=== PATIENT | male | born 1935 | race Caucasian/White ===

== ENCOUNTER 2016-04-19 16:47 | Inpatient (IN) | payer MEDICARE, BC ==
[~2016-04-19] VITALS: Ht 172.7 cm; Wt 80.4 kg
[2016-04-19] VITALS (7 sets, daily range): BP systolic 108–142; BP diastolic 64–95; PULSE 72–146; RESP 16–20; TEMP 97.6; O2SAT 97–100
[2016-04-19] MEDS ORDERED: ASPI81TA81 (16:59)
[2016-04-19] MEDS ORDERED: LEVO.125 PO (16:59)
[2016-04-19] MEDS ORDERED: BENI5TAB4 PO (16:59)
[2016-04-19] MEDS ORDERED: XARE10TA PO (16:59)
[2016-04-19] MEDS ORDERED: METF500T PO (16:59)
[2016-04-19] MEDS ORDERED: SODIUM CHLORIDE 0.9% FLUSH 5 ML FLUSH IVF PRN (17:15)
[2016-04-19] MEDS ORDERED: DILTIAZEM HCL 25 MG/5 ML VIAL IV ONE (17:15)
[2016-04-19] MEDS ORDERED: SODIUM CHLORID 0.9% 500 ML INJ 500 ML IV ONE (17:15)
[2016-04-19] MEDS ORDERED: ASPIRIN 81 MG CHEW TAB PO ONE (17:15)
--- NOTE | 2016-04-19 17:28 | PD ---
HPI Chief Complaint: Cardiac Complaint Time Seen by Provider: 17:07 Travel History International Travel<30 days: No Contact w/Intl Traveler<30days: No Traveled to known affect area: No History of Present Illness HPI Patient is a 80-year-old male with history of hypertension, hyperlipidemia, diabetes, hypothyroidism, presents to emergency room with complaints of chest pain and shortness of breath. Patient reports that for the past 10 days, he has had increased gas and has been "belching." Patient reports that he has uncontrollable belching and reports that this has been causing him to be short of breath. Patient did follow up with his primary care doctor yesterday and EKG was obtained, patient reports that he had new onset atrial fibrillation diagnosed yesterday by his primary care doctor, Dr. Parks. Patient was subsequently started on Xarelto yesterday for his afib. Reports that his heart rate was in the 130's in the office yesterday. Reports that he tried to make an appointment with Dr. Chao for workup of his atrial fibrillation - reports that he is out of the office at this time and cannot be seen until May 06. Patient reports that his shortness of breath is getting worse, reports that he is very short of breath on exertion. Reports that he called his primary care doctor prior to coming to the emergency room and was told to go to the emergency room for evaluation and for admission and for a home health nurse licensed practical to see him. PFSH Past Medical History Heart Rhythm Problems: Yes (A. FIB) Cardiovascular Problems: Yes (afib) Diabetes: Yes Patient Takes Glucophage: Yes Diminished Hearing: No Thyroid Disease: Yes Tetanus Vaccination: Unknown Past Surgical History Cholecystectomy: Yes Social History Alcohol Use: Yes (WINE OCC) Tobacco Use: No Substance Use: No Allergies-Medications (Allergen,Severity, Reaction): Coded Allergies: No Known Allergies (Verified , 04/19/16) Reported Meds & Prescriptions Reported Meds & Active Scripts Active Reported Aspir-81 (Aspirin) 81 Mg Tabdr Synthroid (Levothyroxine Sodium) 125 Mcg Tab 125 Mcg PO DAILY Benicar (Olmesartan) 5 Mg Tab 10 Mg PO DAILY Xarelto (Rivaroxaban) 10 Mg Tab 10 Mg PO DAILY Metformin (Metformin HCl) 500 Mg Tab 500 Mg PO BIDPC With meals Review of Systems General / Constitutional: No: Fever Eyes: No: Visual changes HENT: No: Headaches Cardiovascular: Positive: Chest Pain or Discomfort, Palpitations, Tachycardia Respiratory: Positive: Shortness of Breath, Orthopnea Gastrointestinal: No: Abdominal Pain Genitourinary: No: Dysuria Musculoskeletal: No: Pain Skin: No Rash Neurologic: No: Weakness Psychiatric: No: Depression Endocrine: No: Polydipsia Hematologic/Lymphatic: No: Easy Bruising Physical Exam Narrative GENERAL: mild distress SKIN: Warm and dry. HEAD: Atraumatic. Normocephalic. EYES: Pupils equal and round. No scleral icterus. No injection or drainage. ENT: No nasal bleeding or discharge. Mucous membranes pink and moist. NECK: Trachea midline. No JVD. CARDIOVASCULAR: , tachycardic, irregular rate and rhythm. No murmur appreciated. RESPIRATORY: No accessory muscle use. Clear to auscultation. Breath sounds equal bilaterally. GASTROINTESTINAL: Abdomen soft, non-tender, nondistended. Hepatic and splenic margins not palpable. MUSCULOSKELETAL: No obvious deformities. No clubbing. No cyanosis. +1 edema b/l , no calf tenderness NEUROLOGICAL: Awake and alert. No obvious cranial nerve deficits. Motor grossly within normal limits. Normal speech. PSYCHIATRIC: Appropriate mood and affect; insight and judgment normal. Data Data Last Documented VS Vital Signs Date Time Temp Pulse Resp B/P Pulse Ox O2 Delivery O2 Flow Rate FiO2 04/19/16 19:09 72 18 141/70 98 Nasal Cannula 2 04/19/16 16:53 97.6 Orders B-Type Natriuretic Peptide (04/19/16 17:15) Ckmb (Isoenzyme) Profile (04/19/16 17:15) Complete Blood Count With Diff (04/19/16 17:15) Comprehensive Metabolic Panel (04/19/16 17:15) Magnesium (Mg) (04/19/16 17:15) Prothrombin Time / Inr (Pt) (04/19/16 17:15) Act Partial Throm Time (Ptt) (04/19/16 17:15) Troponin I (04/19/16 17:15) Lipase (04/19/16 17:15) Chest, Single Ap (04/19/16 17:15) Ecg Monitoring (04/19/16 17:15) Iv Access Insert/Monitor (04/19/16 17:15) Oximetry (04/19/16 17:15) Aspirin Chew (Aspirin Chew) (04/19/16 17:15) Sodium Chloride 0.9% Flush (Ns Flush) (04/19/16 17:15) Sodium Chlorid 0.9% 500 Ml Inj (Ns 500 M (04/19/16 17:15) Ct Pulmonary Angiogram (04/19/16 17:15) Us Leg Venous Doppler Bilat (04/19/16 ) Diltiazem Inj (Cardizem Inj) (04/19/16 17:15) Pantoprazole Inj (Protonix Inj) (04/19/16 17:45) Diltiazem (Cardizem) (04/19/16 17:45) Electrocardiogram (04/19/16 17:01) Blood Culture (04/19/16 18:35) Ceftriaxone Inj (Rocephin Inj) (04/19/16 18:45) Azithromycin Inj (Zithromax Inj) (04/19/16 18:45) Iohexol 350 Inj (Omnipaque 350 Inj) (04/19/16 18:55) Heparin Infusion EUSEBIO.Q1H (04/19/16 18:57) Heparin-D5w Inj (Heparin-D5w Inj) (04/19/16 19:00) Act Partial Throm Time (Ptt) (04/19/16 18:57) Cbc No Diff, Includes Plts (04/19/16 18:57) Cbc No Diff, Includes Plts (04/22/16 06:00) Act Partial Throm Time (Ptt) (04/20/16 01:57) Occult Blood (Hemoccult) Stool (04/19/16 18:57) Admit Order (Ed Use Only) (04/19/16 19:23) Labs Laboratory Tests Test 04/19/16 17:30 White Blood Count 12.7 TH/MM3 Red Blood Count 4.21 MIL/MM3 Hemoglobin 12.7 GM/DL Hematocrit 37.4 % Mean Corpuscular Volume 88.9 FL Mean Corpuscular Hemoglobin 30.2 PG Mean Corpuscular Hemoglobin 34.0 % Concent Red Cell Distribution Width 12.0 % Platelet Count 260 TH/MM3 Mean Platelet Volume 9.4 FL Neutrophils (%) (Auto) 70.0 % Lymphocytes (%) (Auto) 21.7 % Monocytes (%) (Auto) 6.0 % Eosinophils (%) (Auto) 1.4 % Basophils (%) (Auto) 0.9 % Neutrophils # (Auto) 8.9 TH/MM3 Lymphocytes # (Auto) 2.7 TH/MM3 Monocytes # (Auto) 0.8 TH/MM3 Eosinophils # (Auto) 0.2 TH/MM3 Basophils # (Auto) 0.1 TH/MM3 CBC Comment DIFF FINAL Differential Comment Prothrombin Time 11.8 SEC Prothromb Time International 1.1 RATIO Ratio Activated Partial 27.7 SEC Thromboplast Time Sodium Level 138 MEQ/L Potassium Level 4.2 MEQ/L Chloride Level 104 MEQ/L Carbon Dioxide Level 23.5 MEQ/L Anion Gap 11 MEQ/L Blood Urea Nitrogen 22 MG/DL Creatinine 1.30 MG/DL Estimat Glomerular Filtration 53 ML/MIN Rate Random Glucose 229 MG/DL Calcium Level 9.0 MG/DL Magnesium Level 1.8 MG/DL Total Bilirubin 0.6 MG/DL Aspartate Amino Transf 28 U/L (AST/SGOT) Alanine Aminotransferase 50 U/L (ALT/SGPT) Alkaline Phosphatase 58 U/L Total Creatine Kinase 78 U/L Troponin I 0.02 NG/ML B-Type Natriuretic Peptide 180 PG/ML Total Protein 7.5 GM/DL Albumin 3.8 GM/DL Lipase 120 U/L [facility] Medical Decision Making Medical Screen Exam Complete: Yes Emergency Medical Condition: Yes Interpretation(s) EKG at 1701: A. fib with RVR at 133 bpm, qt/qtc: 330/457 Vital Signs Date Time Temp Pulse Resp B/P Pulse Ox O2 Delivery O2 Flow Rate FiO2 04/19/16 17:13 133 20 126/95 98 Nasal Cannula 2 04/19/16 17:11 97 Nasal Cannula 2 04/19/16 17:01 20 97 Room Air 04/19/16 16:53 97.6 146 20 142/90 97 Last Impressions Chest X-Ray 04/19/16 1715 Signed Impressions: Service Date/Time: Tuesday, April 19, 2016 17:37 - CONCLUSION: Patchy opacity at the right lung base of concern for early pneumonia. Mikhail Patel MD Lower Extremity Ultrasound 04/19/16 0000 Signed Impressions: Service Date/Time: Tuesday, April 19, 2016 17:47 - CONCLUSION: No DVT. Morgan Cloud MD Differential Diagnosis A. fib with RVR, PE, DVT, arrhythmia, CHF exacerbation, ACS, electrolyte abnormalities Narrative Course Patient is a 80-year-old male who presents to emergency room with complaints of shortness of breath and belching for the past 10 days. Patient was diagnosed with A. fib with RVR yesterday and was started on Xarelto. Patient reports that his symptoms have been progressing and he has been progressively short of breath. Patient reports that he has an appointment with a home health nurse licensed practical on May [address] Chao, Patient currently in A. fib with RVR, Cardizem ordered for patient. Patient was placed on a property assessment monitor upon arrival to emergency room. Labs as well as x-ray of chest obtained. Patient with sob - concern for possible PE although patient denies any recent immobilizations. CTA of chest as well as US ordered to evaluate for PE/DVT. Patient does have +1 edema to bilateral extremities US of LE's negative. pt rate controlled with cardizem 20mg iv, patient given cardizem 30mg po chest xray with pneumonia - blood cultures ordered, antibiotics ordered patient with ARLINE score of 3 - patient started on heparin gtt patient with new onset afib and multilobar pneumonia - will require admission 2030: still waiting for call back from [facility]- 3rd page made to service Diagnosis Primary Impression: Atrial fibrillation with rapid ventricular response Additional Impressions: Pneumonia Pleural effusion Admitting Information Admitting Physician Requests: Admit Rhonda Kee DO Apr 19, 2016 17:28
[2016-04-19 17:40] LABS: AUTOMATED NEUTROPHIL # 8.9 TH/MM3 (1.8-7.7); BASOPHIL # 0.1 TH/MM3 (0-0.2); BASOPHIL % 0.9 % (0.0-2.0); EOSINOPHIL # 0.2 TH/MM3 (0-0.4); EOSINOPHIL % 1.4 % (0.0-4.0); HEMATOCRIT 37.4 % (39.0-51.0); HEMO FLAGS DIFF FINAL; LYMPH % 21.7 % (9.0-44.0); LYMPHOCYTE # 2.7 TH/MM3 (1.0-4.8); MEAN CELL VOLUME 88.9 FL (80.0-100.0); MEAN CORPUSCULAR HEMOGLOBIN 30.2 PG (27.0-34.0); PLATELET COUNT 260 TH/MM3 (150-450); RED BLOOD COUNT 4.21 MIL/MM3 (4.50-5.90); WHITE BLOOD COUNT 12.7 TH/MM3 (4.0-11.0)
[2016-04-19] MEDS ORDERED: PANTOPRAZOLE SODIUM 40 MG VIAL IV PUSH ONE (17:45)
[2016-04-19] MEDS ORDERED: DILTIAZEM HCL 30 MG TAB PO ONE (17:45)
[2016-04-19] MEDS ORDERED: DILTIAZEM HCL 60 MG TAB PO ONE (17:45)
[2016-04-19 17:49] LABS: CHLORIDE 104 MEQ/L (98-107); POTASSIUM 4.2 MEQ/L (3.5-5.1); SODIUM (NA) 138 MEQ/L (136-145)
[2016-04-19 17:53] LABS: ANION GAP 11 MEQ/L (5-15); BICARBONATE 23.5 MEQ/L (21.0-32.0); BLOOD UREA NITROGEN 22 MG/DL (7-18); MAGNESIUM 1.8 MG/DL (1.5-2.5)
[2016-04-19 17:54] LABS: APTT (PATIENT) 27.7 SEC (24.3-30.1); INTERNATIONAL NORMALIZED RATIO 1.1 RATIO; PROTHROMBIN TIME - PATIENT 11.8 SEC (9.8-11.6)
[2016-04-19 17:55] LABS: ALT (GPT) 50 U/L (12-78)
--- NOTE | 2016-04-19 17:55 | RADHPO ---
EXAM DATE/TIME: 04/19/2016 17:37 [facility] COMPARISON: No previous studies available for comparison. INDICATIONS : Short of breath for 10 days. MEDICAL HISTORY : A-fib. Diabetes. SURGICAL HISTORY : Cholecystectomy. ENCOUNTER: Initial ACUITY: 1 week PAIN SCORE: 0/10 LOCATION: Bilateral chest FINDINGS: A single AP erect portable view of the chest was obtained and demonstrates patchy opacity in the righ t lung base. The heart size is at the upper limits of normal. There is a calcified left hilar lymph n ode. There is no definite effusion. The bony thorax is intact. There are multiple overlying electroca rdiogram leads. CONCLUSION: Patchy opacity at the right lung base of concern for early pneumonia. Mikhail Patel MD on April 19, 2016 at 17:53 Board Certified Radiologist. This report was verified electronically.
[2016-04-19 17:56] LABS: AST (GOT) 28 U/L (15-37); GLOMERULAR FILTRATION RATE 53 ML/MIN (>89)
[2016-04-19 17:57] LABS: TOTAL BILIRUBIN ADULT 0.6 MG/DL (0.2-1.0)
[2016-04-19 17:58] LABS: ALKALINE PHOSPHATASE 58 U/L (45-117)
[2016-04-19 18:03] LABS: CREATINE KINASE 78 U/L (39-308)
--- NOTE | 2016-04-19 18:16 | RADHPO ---
EXAM DATE/TIME: 04/19/2016 17:47 [facility] COMPARISON: No previous studies available for comparison. INDICATIONS : Bilateral leg swelling. Shortness of breath. MEDICAL HISTORY : Diabetes. Thyroid disease. Afib. Anticoagulant therapy, Eliquis. SURGICAL HISTORY : Carotid endarterectomy.Cholecystectomy. ENCOUNTER: Initial ACUITY: 1 week PAIN SCORE: 0/10 LOCATION: Bilateral leg. TECHNIQUE: Venous ultrasound of the left and right leg was performed from the inguinal ligament to the proximal calf. Real-time, color Doppler and spectral tracing, compression and augmentation techniques were us ed. FINDINGS: RIGHT LEG: There is normal compressibility of the deep venous system from the inguinal region to the proximal ca lf. No echogenic clot is seen in the lumen of the common femoral, femoral, popliteal, and posterior tibial veins. There is a normal response of the venous system to proximal and distal augmentation an d respiration. LEFT LEG: There is normal compressibility of the deep venous system from the inguinal region to the proximal ca lf. No echogenic clot is seen in the lumen of the common femoral, femoral, popliteal, and posterior tibial veins. There is a normal response of the venous system to proximal and distal augmentation an d respiration. CONCLUSION: No DVT. Morgan Cloud MD on April 19, 2016 at 18:12 Board Certified Radiologist. This report was verified electronically.
[2016-04-19] MEDS ORDERED: cefTRIAXone INJ 1,000 MG in SODIUM CHLORIDE 0.9% INJ 100 ML IV ONE (18:45)
[2016-04-19] MEDS ORDERED: AZITHROMYCIN INJ 500 MG in SODIUM CHLOR 0.9% 250 ML INJ 250 ML IV ONE (18:45)
[2016-04-19] MEDS ORDERED: IOHEXOL 350 MG/ML 10 ML VIAL (for RAD DIAG) IV ONE (18:55)
[2016-04-19] MEDS ORDERED: HEPARIN-D5W INJ 250 ML IV SCH (19:00)
--- NOTE | 2016-04-19 19:15 | RADHPO ---
EXAM DATE/TIME: 04/19/2016 18:43 [facility] COMPARISON: No previous studies available for comparison. INDICATIONS : Shortness of breath. Evaluate for pulmonary embolism. IV CONTRAST: 75 cc Omnipaque 350 (iohexol) IV RADIATION DOSE: 13.69 CTDIvol (mGy) MEDICAL HISTORY : Cardiovascular disease. Diabetes mellitus type 2. SURGICAL HISTORY : Cholecystectomy. ENCOUNTER: Initial ACUITY: 2 weeks PAIN SCALE: 0/10 LOCATION: Bilateral chest TECHNIQUE: Volumetric scanning of the chest was performed using a pulmonary embolism protocol MIP images were reconstructed. Using automated exposure control and adjustment of the mA and/or kV acco rding to patient size, radiation dose was kept as low as reasonably achievable to obtain optimal diag nostic quality images. FINDINGS: The pulmonary arterial structures are well demonstrated. Pulmonary embolus is not seen. There are mild bilateral pleural effusions being worse on the right than the left. There is some p atchy nodular density seen in the superior lateral posterior right upper lung. This cluster pattern is most suggestive of post inflammatory change. There is also some minimal nodular density seen in t he right middle lobe region. There is some scattered irregular density seen at the lung bases bilate rally likely representing some degree of consolidation or atelectasis. There is a mild pericardial e ffusion. Coronary artery calcifications are present. Significant adenopathy is not seen. Normal siz ed lymph nodes are seen. Calcified granulomas are seen in the liver and spleen. CONCLUSION: 1. No pulmonary embolus. 2. Bilateral mild pleural effusions being worse on the right. 3. Scattered nodular densities seen in the right upper lobe and right middle lobe. These are most li dedrick post inflammatory given their distribution. They can be conservatively followed. 4. Patchy areas of irregular density in the lung bases likely representing areas of atelectasis or co nsolidation. Morgan Cloud MD on April 19, 2016 at 19:02 Board Certified Radiologist. This report was verified electronically.
[2016-04-19 19:42] LABS: MEAN CORPUSCULAR HEMOGLOBIN 29.7 PG (27.0-34.0); MEAN CORPUSCULAR HGB CONC 32.6 % (32.0-36.0); PLATELET COUNT 221 TH/MM3 (150-450); RED BLOOD COUNT 4.07 MIL/MM3 (4.50-5.90); RED CELL DISTRIBUTION WIDTH 12.4 % (11.6-17.2); REVIEW FLAG FINAL; WHITE BLOOD COUNT 10.7 TH/MM3 (4.0-11.0)
[2016-04-19] MEDS ORDERED: NALOXONE HCL 0.4 MG/ML AMP IV PRN (20:15)
[2016-04-19] MEDS ORDERED: SODIUM CHLORIDE 0.9% FLUSH 5 ML FLUSH FLUSH PRN (20:15)
--- NOTE | 2016-04-19 20:38 | RADHPO ---
EXAM DATE/TIME: 04/19/2016 20:20 [facility] COMPARISON: No previous studies available for comparison. INDICATIONS : Abdominal bloating for several days per patient. MEDICAL HISTORY : Cardiovascular disease. Diabetes mellitus type 2. SURGICAL HISTORY : Cholecystectomy. ENCOUNTER: Initial ACUITY: 4 - 6 days PAIN SCORE: 2/10 LOCATION: Abdomen, upper quadrant. FINDINGS: Significantly dilated bowel is not seen. Clips are seen in the right upper quadrant presumably from p rior cholecystectomy. Contrast is identified within the urinary bladder. The patient had a CT pulmon naheed angiogram performed earlier today. There is some degenerative change in the lumbar spine. CONCLUSION: No acute abnormality is seen. Morgan Cloud MD on April 19, 2016 at 20:30 Board Certified Radiologist. This report was verified electronically.
[2016-04-19] MEDS: SODIUM CHLORIDE 0.9% FLUSH 5 ML FLUSH FLUSH SCH (21:00)
[2016-04-20] VITALS (94 sets, daily range): BP systolic 64–160; BP diastolic 42–101; PULSE 60–148; RESP 6–36; TEMP 97.5–98.5; O2SAT 81–100
[2016-04-20] MEDS ORDERED: TEMAZEPAM 7.5 MG CAP PO ONE (00:30)
[2016-04-20 01:11] LABS: BLOOD, URINE NEG (NEG); GLUCOSE,URINE NEG (NEG); KETONE, URINE NEG (NEG); NITRITE,URINE NEG (NEG); PH, URINE 5.5 (5.0-8.5)
[2016-04-20 01:22] LABS: URINE COLOR YELLOW (YELLW/STRAW)
[2016-04-20 01:25] LABS: MUCUS URINE OCC /lpf (OCC); SQUAMOUS EPITHELIAL CELL URINE 0-5 /hpf (0-5)
[2016-04-20 01:26] LABS: COMMENT (UR) CULT NOT INDICATED; CULTURE IF INDICATED CULT NOT INDICATED; HYALINE CAST, URINE 0-2 /lpf (RARE)
[2016-04-20 02:39] LABS: APTT (PATIENT) 44.1 SEC (24.3-30.1)
[2016-04-20] MEDS ORDERED: DILTIAZEM HCL 25 MG/5 ML VIAL IV ONE (03:00)
[2016-04-20] MEDS ORDERED: methylPREDNISolone SOD SUCC 125 MG/2 ML VIAL IV PUSH ONE (03:45)
[2016-04-20] MEDS ORDERED: FUROSEMIDE 40 MG/4 ML VIAL IV PUSH ONE (03:45)
[2016-04-20] MEDS: RESP: ALBUTEROL 2.5 MG/IPRATROPIUM 0.5 MG NEB (PRN) NEB ×2 (03:46→07:25)
[2016-04-20] MEDS ORDERED: NITROGLYCERIN 0.4 MG SL 25 TABS/BTL SL ONE (04:09)
[2016-04-20] MEDS ORDERED: ETOMIDATE 20 MG/10 ML VIAL ONE (04:11)
[2016-04-20] MEDS ORDERED: PROPOFOL 500 MG/50 ML INJ 50 ML ONE (04:18)
--- NOTE | 2016-04-20 04:26 | RADHPO ---
EXAM DATE/TIME: 04/20/2016 04:04 [facility] COMPARISON: CHEST SINGLE AP, April 19, 2016, 17:37. INDICATIONS : Short of breath. MEDICAL HISTORY : A-fib. Diabetes. SURGICAL HISTORY : Cholecystectomy. ENCOUNTER: Subsequent ACUITY: 1 week PAIN SCORE: 0/10 LOCATION: Bilateral chest FINDINGS: The cardiac silhouette is enlarged in transverse diameter. There are findings of congestive heart jay lure with interstitial and alveolar opacity bilaterally. Small bilateral pleural effusions are identi fied. The findings have worsened when compared with the prior examination. CONCLUSION: 1. Cardiomegaly and findings of congestive heart failure. The findings have worsened when compared wi th the prior examination. Ramez Grubbs MD on April 20, 2016 at 4:24 Board Certified Radiologist. This report was verified electronically.
[2016-04-20] MEDS ORDERED: PROPOFOL 1000 MG/100 ML IV SCH (04:45)
--- NOTE | 2016-04-20 05:04 | RADHPO ---
EXAM DATE/TIME: 04/20/2016 04:40 [facility] COMPARISON: CHEST SINGLE AP, April 20, 2016, 4:04. INDICATIONS : Post intubation. MEDICAL HISTORY : A-fib. Diabetes. SURGICAL HISTORY : Cholecystectomy. ENCOUNTER: Initial ACUITY: 1 day PAIN SCORE: Non-responsive. LOCATION: Bilateral chest FINDINGS: The cardiac silhouette is enlarged in transverse diameter. Endotracheal tube is in good position abov e the donald. There are findings of congestive heart failure with interstitial and alveolar opacity b ilaterally. The findings have worsened when compared with the prior examination. CONCLUSION: 1. Cardiomegaly and findings of congestive heart failure. The findings have worsened when compared wi th the prior examination. 2. Satisfactory position of endotracheal tube as above. Ramez Grubbs MD on April 20, 2016 at 5:02 Board Certified Radiologist. This report was verified electronically.
[2016-04-20 05:33] LABS: BLOOD GAS BASE EXCESS -6.1 mmol/L (-2-2); BLOOD GAS CARBOXYHEMOGLOBIN 0.8 % (0-4); BLOOD GAS HCO3 20 mmol/L (22-26); BLOOD GAS O2 HGB SATURATION 97 % (90-100); BLOOD GAS OXYGEN CONTENT 17.2 Vol % (12.0-20.0); BLOOD GAS PCO2 44 mmHg (38-42); BLOOD GAS PO2 195 mmHg (61-120); BLOOD GAS TOTAL HGB 12.3 G/DL (12.0-16.0)
[2016-04-20 05:34] LABS: CRITICAL VALUE YES; OXYGEN DEVICE VENTILATOR
[2016-04-20 05:35] LABS: DRAW SITE RT RADIAL; FIO2 100 %; NUMBER OF ARTERIAL PUNCTURES 1; STAT NO; ULNAR PULSE Y
[2016-04-20 05:36] LABS: VENT SETTINGS PRVC/AC
[2016-04-20 06:09] LABS: AUTOMATED NEUTROPHIL # 19.1 TH/MM3 (1.8-7.7); BASOPHIL % 0.2 % (0.0-2.0); EOSINOPHIL # 0.2 TH/MM3 (0-0.4); EOSINOPHIL % 0.7 % (0.0-4.0); HEMATOCRIT 37.6 % (39.0-51.0); LYMPH % 11.6 % (9.0-44.0); LYMPHOCYTE # 2.7 TH/MM3 (1.0-4.8); MEAN CELL VOLUME 90.9 FL (80.0-100.0); MEAN CORPUSCULAR HEMOGLOBIN 30.6 PG (27.0-34.0); MEAN CORPUSCULAR HGB CONC 33.7 % (32.0-36.0); MONO % 4.3 % (0.0-8.0); NEUT % 83.2 % (16.0-70.0); PLATELET COUNT 238 TH/MM3 (150-450); RED BLOOD COUNT 4.14 MIL/MM3 (4.50-5.90); RED CELL DISTRIBUTION WIDTH 12.7 % (11.6-17.2)
[2016-04-20 06:18] LABS: HEMO FLAGS AUTO DIFF
[2016-04-20 06:35] LABS: POTASSIUM 3.9 MEQ/L (3.5-5.1)
[2016-04-20 06:40] LABS: BICARBONATE 21.9 MEQ/L (21.0-32.0)
[2016-04-20 07:15] LABS: SCAN/DIFF AUTO DIFF CONFIRMED
[2016-04-20] MEDS ORDERED: CHLORHEXIDINE GLUCONATE 2 % 1 PACK (2 CLOTHS) TOP PRN (07:15)
[2016-04-20] MEDS ORDERED: fentaNYL DRIP 250 ML IV SCH (07:15)
[2016-04-20] MEDS ORDERED: INSULIN NovoLIN REGULAR SUPPLEMENTAL SCALE SQ SCH (07:15)
[2016-04-20] MEDS ORDERED: MISCELLANEOUS NURSING INFORMATION XX SCH (07:15)
[2016-04-20] MEDS ORDERED: GLUCAGON 1 MG/ML VIAL OTHER PRN (07:15)
[2016-04-20] MEDS ORDERED: DEXTROSE 50% IN WATER 50 ML VIAL(D50) IV PUSH PRN (07:15)
[2016-04-20] MEDS ORDERED: VANCOMYCIN INJ 1,000 MG in SODIUM CHLOR 0.9% 250 ML INJ 250 ML IV ONE (08:00)
[2016-04-20] MEDS ORDERED: ASPIRIN EC 81 MG TABEC PO SCH (09:00)
[2016-04-20] MEDS ORDERED: LEVOFLOXACIN 750 MG PREMIX INJ 150 ML IV SCH (09:00)
[2016-04-20] MEDS ORDERED: PIPERACIL-TAZO 4.5 GM PREMIX 100 ML IV SCH (09:00)
[2016-04-20 09:06] LABS: APTT (PATIENT) 50.7 SEC (24.3-30.1)
[2016-04-20] MEDS: PANTOPRAZOLE SODIUM 40 MG VIAL IV SCH (09:35)
[2016-04-20] MEDS: SODIUM CHLORIDE 0.9% FLUSH 5 ML FLUSH FLUSH SCH ×2 (09:35→20:25)
--- NOTE | 2016-04-20 09:56 | EC ---
Study Study Date:04/20/2016 STUDY CONCLUSIONS SUMMARY - Procedure narrative: Transthoracic echocardiography. Image quality was fair. Scanning was performed from the parasternal, apical, and subcostal acoustic windows. - Left ventricle: The cavity size was moderately dilated. Wall thickness was normal. Systolic function was severely reduced. The estimated ejection fraction was 20%. Wall motion assessment is suboptimal. The basal portions of the left ventricle appear to be mildly hypokinetic. All other segments are akinetic. - Mitral valve: Mild annular calcification. Mild leaflet tip calcification. Mild regurgitation. - Left atrium: The atrium was mildly to moderately dilated. - Right atrium: The atrium was mildly dilated. - Tricuspid valve: Mild regurgitation. - Pericardium, extracardiac: There was a small circumferential pericardial effusion with no evidence for tamponade. Left pleural effusion is also evident. If LV function is below 40, please consider prescribing an ACEI or ARB or document rationale for non-use. PROCEDURE DATA STUDY STATUS: Elective. Procedure: Transthoracic echocardiography. Image quality was fair. Scanning was performed from the parasternal, apical, and subcostal acoustic windows. Study completion: The patient tolerated the procedure well. Transthoracic echocardiography. M-mode, complete 2D, complete spectral Doppler, and color Doppler. Height: Height: 68in. Weight: Weight: 184.6lb. Body mass index: BMI: 28.1kg/m^2. Body surface area: BSA: 1.98m^2. Patient status: Inpatient. CARDIAC ANATOMY LEFT VENTRICLE: The cavity size was moderately dilated. Wall thickness was normal. Systolic function was severely reduced. The estimated ejection fraction was 20%. Wall motion assessment is suboptimal. The basal portions of the left ventricle appear to be mildly hypokinetic. All other segments are akinetic. AORTIC VALVE: Trileaflet; normal thickness leaflets. Doppler: Transvalvular velocity was within the normal range. There was no stenosis. No regurgitation. Valve area: 3.01cm^2 (Vmax). Indexed valve area: 1.52cm^2/m^2 (Vmax). AORTA: Aortic root: The aortic root was normal in size. MITRAL VALVE: Mild annular calcification. Mild leaflet tip calcification. Doppler: Transvalvular velocity was within the normal range. There was no evidence for stenosis. Mild regurgitation. LEFT ATRIUM: The atrium was mildly to moderately dilated. RIGHT VENTRICLE: The cavity size was normal. Wall thickness was normal. PULMONIC VALVE: Doppler: Transvalvular velocity was within the normal range. There was no evidence for stenosis. No regurgitation. TRICUSPID VALVE: Structurally normal valve. Doppler: Transvalvular velocity was within the normal range. Mild regurgitation. PULMONARY ARTERY: The main pulmonary artery was normal-sized. Systolic pressure was within the normal range. RIGHT ATRIUM: The atrium was mildly dilated. PERICARDIUM: There was a small circumferential pericardial effusion with no evidence for tamponade. Left pleural effusion is also evident. SYSTEMIC VEINS: Inferior vena cava: The vessel was normal in size. Patient weight: 184.6lb _Ejection fraction:_ 65-75% _Fractional shortening:_ 32% up to 5Kg 5-11.5Kg 11.6-22.9Kg 23-45Kg 45-57Kg Aortic Root 7-13 <17 13-22 17-27 17-27 LA diam 6-13 <23 24-38 33-47 37-40 RVID 10-17 7-15 7-15 7-18 8-17 LVIDd 12-22 <32 24-38 33-47 37-40 LVPW 2-4 3-6 5-7 6-8 7-8 IVS 2-4 3-6 5-7 6-8 7-8 BASIC MEASUREMENTS ADULT NORMAL Left ventricle LV internal dimension, ED, chordal *55.6 mm 43-52 level, PLAX LV internal dimension, ES, chordal *49.7 mm 23-38 level, PLAX Fractional shortening, chordal level, *11 % >29 PLAX LV posterior wall thickness, ED 8.16 mm IVS/LVPW ratio, ED 1.06 <1.3 Ventricular septum Septal thickness, ED 8.68 mm Aortic valve Leaflet separation 17 mm 15-26 BASIC MEASUREMENTS ADULT NORMAL Aortic valve Leaflet separation 17 mm 15-26 Aorta Root diameter, ED 22 mm 20-37 Left atrium Anterior-posterior dimension, ES *44 mm 19-40 Anterior-posterior dimension index, ES *2.22 cm/m^2 <2.2 LA/aortic root ratio 2 DOPPLER MEASUREMENTS ADULT NORMAL Main pulmonary artery Pressure, S 26 mm Hg =30 Aortic valve Peak velocity, S 124 cm/s Valve area, Vmax 3.01 cm^2 Valve area index, Vmax 1.52 cm^2/m^2 Regurgitant velocity, ED 94.6 cm/s Regurgitant deceleration 554 cm/s^2 Regurgitant pressure half-time 500 ms Regurgitant gradient, ED 4 mm Hg Mitral valve Maximal regurgitant velocity 251 cm/s Tricuspid valve Regurgitant peak velocity 210 cm/s Peak RV-RA gradient, S 18 mm Hg Maximal regurgitant velocity 210 cm/s Systemic veins Estimated CVP 10 mm Hg Right ventricle RV pressure, S 28 mm Hg <30 Pulmonic valve Peak velocity, S 67.9 cm/s LEGEND: Mean values are shown as u=mean value. Asterisk (*) daly values outside specified normal range. Amended Dion Alonso. [id number]
[2016-04-20 10:16] LABS: BLOOD GAS BASE EXCESS -3.8 mmol/L (-2-2); BLOOD GAS CARBOXYHEMOGLOBIN 1.3 % (0-4); BLOOD GAS HCO3 20 mmol/L (22-26); BLOOD GAS O2 HGB SATURATION 96 % (90-100); BLOOD GAS OXYGEN CONTENT 15.7 Vol % (12.0-20.0); BLOOD GAS PCO2 28 mmHg (38-42); BLOOD GAS PO2 96 mmHg (61-120); BLOOD GAS TOTAL HGB 11.5 G/DL (12.0-16.0); CRITICAL VALUE NO; OXYGEN DEVICE VENTILATOR
[2016-04-20] MEDS: FUROSEMIDE 40 MG/4 ML VIAL IV PUSH SCH ×2 (10:16→17:24)
[2016-04-20 10:17] LABS: DRAW SITE LT RADIAL; FIO2 50 %; NUMBER OF ARTERIAL PUNCTURES 1; STAT NO; ULNAR PULSE PRESENT; VENT SETTINGS PRVC/AC/14/600/1./5P
--- NOTE | 2016-04-20 10:22 | MH ---
cc: MEGGAN STEVENSON DATE OF ADMISSION: 04/19/2016 DATE OF 1935 HISTORY OF PRESENT ILLNESS The patient is a 80-year-old male with past medical history of hypertension, hyperlipidemia, diabetes mellitus, hypothyroidism, atrial fibrillation. The patient presented to [facility] ED with complaints of chest pain associated with shortness of breath. The patient followed up with his primary care physician yesterday and EKG was obtained which showed new-onset atrial fibrillation and the patient was subsequently started on Xarelto for atrial fibrillation. The patient was advised to go to the ED for evaluation of his shortness of breath and to be seen by production underwriter. In the ER EKG was obtained which showed atrial fibrillation with RVR at a rate of 133 beats per minute. His laboratory data showed worsening leukocytosis with a WBC of 23.0 this morning and creatinine of 1.40 from 1.30 yesterday. Due to worsening respiratory distress the patient was subsequently intubated by the ED physician and placed on full mechanical ventilation. ABG post-intubation showed a pH of 7.27, CO2 44, pAO2 195, bicarb of 20 and saturation of 97% on PRVC/assist control mode with rate of 12, tidal volume 600, PEEP of 5, FIO2 70% and __1.0. He had CT angiogram last night which showed no evidence of pulmonary embolism, however, it showed bilateral mild pleural effusions and scattered nodular densities in the right upper lobe and right middle lobe, in addition to patchy areas of irregular density in the lung bases likely representing areas of atelectasis versus consolidation. Chest x-ray from this morning showed cardiomegaly and findings of congestive heart failure. The patient also had Doppler ultrasound lower extremities which showed no evidence of DVT. In the ER the patient was given ceftriaxone, azithromycin, aspirin, Lasix and Solu-Medrol 125 mg IV push. In addition the patient received Cardizem IV push for atrial fibrillation with RVR. When seen the patient is intubated on full mechanical ventilation and sedated with Diprivan. In addition the patient was started on heparin drip in the ED. PAST MEDICAL HISTORY Significant for: 1. Hypertension. 2. Hyperlipidemia. 3. Diabetes mellitus. 4. Hypothyroidism. 5. New-onset atrial fibrillation started on Xarelto by primary care physician. PAST SURGICAL HISTORY Previous cholecystectomy. SOCIAL HISTORY Occasional drinker, nonsmoker. ALLERGIES NO KNOWN DRUG ALLERGIES reported. MEDICATION 1. Xarelto. 2. Synthroid. 3. Aspirin. 4. Metformin. 5. Benicar. FAMILY HISTORY Noncontributory. REVIEW OF SYSTEMS As per HPI. The rest of the review of systems limited as the patient is intubated. PHYSICAL EXAMINATION GENERAL: A 80-year-old male intubated for respiratory failure. VITAL SIGNS: Afebrile, pulse of 89, blood pressure 90/61, saturation 99%. Vent setting PRVC/assist control rate of 12, tidal volume 600, PEEP of 5, __ 1.0, FIO2 70%. HEENT: Atraumatic, normocephalic. Pupil equal, round and reactive to light and accommodation. Extraocular muscles intact. Conjunctivae pink. Nonicteric sclerae. Oral mucosa within normal. NECK: Supple. No JVD, adenopathy or thyromegaly. Trachea midline. Orally intubated. CARDIOVASCULAR: Irregularly irregular. Normal S1-S2. No murmurs, rubs or gallops noted. PULMONARY: Bilateral equal air entry with coarse breath sounds. ABDOMEN: Soft, nontender, no distension. Positive bowel sounds. EXTREMITIES: No cyanosis, clubbing or edema. NEURO: Intubated and sedated with Diprivan. LABORATORY DATA Sodium 139, potassium 3.9, chloride 104, CO2 21, BUN 22, creatinine 1.40 and glucose of 332. WBC 23, hemoglobin 12.7, hematocrit 37, platelet count 238. Urinalysis showed no evidence of any leukocyte esterase, nitrite. RADIOGRAPHIC STUDIES CT angiogram of the chest showed no evidence of PE, however, it showed scattered nodular densities in the right upper and right middle lobe in addition to patchy areas of irregular density in the lung bases. Chest x-ray from this morning showed cardiomegaly, ET tube above the donald and CHF pattern. Doppler ultrasound lower extremity showed no evidence of DVT.. Abdominal x-ray obtained which showed no acute abnormality seen. EKG Showed atrial fibrillation with RVR at a rate of 133 beats per minute. IMPRESSION 1. Acute hypoxemic respiratory failure requiring intubation. 2. CHF. 3. Pneumonia. 4. Leukocytosis. 5. Atrial fibrillation with RVR. 6. Acute kidney injury. 7. Hyperglycemia with underlying history of diabetes mellitus. 8. Hypertension. 9. Hypothyroidism. RECOMMENDATIONS 1. The patient is currently on Diprivan infusion for sedation, place on fentanyl infusion if needed and daily sedation vacation. Monitor neuro status closely. 2. Continue with vent support and maintain sats above 92%. 3. Increase respiratory rate to 14 and decrease FIO2 to 50%. Will repeat ABG. 4. Bronchodilators in the form of DuoNeb q. 6 and will initiate ICU vent bundle. Start spontaneous breathing trials as tolerated when appropriate. 5. Monitor heart rate and blood pressure closely and maintain MAP greater than 65 mmHg. The patient had a troponin of 0.3 or less x3. 6. Will obtain a 2-D echo to evaluate LV function and rule out regional wall motion abnormalities. 7. Consult cardiology service for new onset atrial fibrillation with RVR. 8. Continue with heparin drip for atrial fibrillation. 9. Monitor renal function, I&0's and electrolyte replacement as needed. Continue with diuretics. The patient was placed on Lasix 40 mg IV b.i.d. 10. Start tube feeds in the form of Glucerna 1.5 with goal rate of 45 mL an hour and Protonix 40 mg IV daily for GI prophylaxis. 11. Place on broad-spectrum antibiotics in the form of vancomycin, Zosyn and azithromycin. Monitor for signs of infections which include fever and WBC. Follow up on blood cultures. In addition will obtain a sputum culture with gram stain, strep pneumonia and Legionella urinary antigen. 12. Place on medium scale insulin with Accu-Chek q. 6-hour for glycemic control and will obtain a baseline TSH level given underlying history of hypothyroidism. 13. Monitor CBC and coags as the patient is on heparin drip. 14. GI prophylaxis with Protonix 40 mg daily and DVT prophylaxis with SCDs and heparin drip. In addition the patient is on heparin drip. 15. Critical care time 50 minutes excluding procedures. MD ABBE Mahoney/MARY JO /7:15 AM /9:52 AM
--- NOTE | 2016-04-20 11:02 | MB ---
cc: DARYL CHAO M.D., MARK DATE OF CONSULTATION 04/20/2016 REASON FOR CONSULTATION Thank you Dr. Kee and Dr. Graves for asking us to see this 80-year-old white gentleman who presents with congestive heart failure, respiratory failure who is on a ventilator at this time. The patient had atrial fibrillation with rapid ventricular response. He was due to be seen in my office in the next couple of weeks, but unfortunately he got worse and presented to the emergency room via Dr. Parks's office. PAST MEDICAL HISTORY Positive for: 1. Atrial fibrillation of recent onset 2. Diabetes 3. The patient has leukocytosis. 4. He has had a history of a cholecystectomy. SOCIAL HISTORY Occasional alcohol. No tobacco. ALLERGIES INCLUDE ASPIRIN, SYNTHROID, Include aspirin and Seth 4. Bilateral ALLERGIES None known MEDICATIONS Include: 1. Aspirin 2. Synthroid 3. Benicar 4. Xarelto 5. Metformin REVIEW OF SYSTEMS Denies seizure, headaches, vomiting, diarrhea, dysuria or hematuria, otherwise 12-point review of systems is negative. PHYSICAL EXAM Pulse is 130. Blood pressure 141/70. EYES: Showed no xanthelasma. MOUTH: No cyanosis or pallor. NECK: No JVD. The patient was intubated. HEART: Two heart sounds, no murmurs. CHEST: Decreased air entry and rales. ABDOMEN: Soft. No hepatosplenomegaly. EXTREMITIES: Legs reveal no evidence of edema. NEUROLOGICAL: Exam grossly intact. LABORATORY TESTS White count was 12.7, hemoglobin was also 12.7, platelets 260, BNP 180. Troponin-I 0.02. Chest x-ray shows cardiomegaly and congestive heart failure. White count has jumped to 23,000, creatinine 1.4, GFR 49.5, BMP 180, TSH 3.14. Troponin-I 0.[address] angio showed no pulmonary emboli, bilateral effusions, a nodular density in the right upper lobe and right middle lobe felt to be most likely post inflammatory and is questionable consolidation. Troponin is negative. ASSESSMENT/PLAN At this point, the patient appears to have congestive heart failure, but given the elevated white count and early CT findings that might be significant for pneumonia as well. This could be causative in the patient's histology of the atrial fibrillation. Electrocardiogram shows atrial fibrillation with a left bundle branch block. EKG of 2004 shows sinus rhythm with no QRS. ASSESSMENT/PLAN We will continue diuresis and treat for congestive heart failure and we will treat the patient for possible pneumonia with antibiotics. Control heart rate with Diltiazem. When the patient is discharged, we will consider possible outpatient nuclear stress testing. We will also review the echocardiogram which is to be done today. Thank you kindly for asking us to see this very pleasant gentleman. Please note, the patient on vancomycin and azithromycin. We will switch him from heparin to Xarelto if he is able to take it via nasogastric tube. Daryl Chao MD, FRCP,[facility]/[place] /8:41 AM /10:37 AM MTDTushar
[2016-04-20] MEDS: INSULIN NovoLIN REGULAR SUPPLEMENTAL SCALE SQ SCH ×3 (11:31→23:40)
[2016-04-20] MEDS: PIPERACIL-TAZO 4.5 GM PREMIX 100 ML IV SCH ×3 (11:32→23:51)
[2016-04-20] MEDS: ASPIRIN 81 MG CHEW TAB OG-TUBE SCH (11:32)
[2016-04-20] MEDS ORDERED: SODIUM CHLORID 0.9% 500 ML INJ 500 ML IV ONE (14:45)
[2016-04-20] MEDS: RESP: ALBUTEROL 2.5 MG/IPRATROPIUM 0.5 MG NEB (SCH) NEB ×2 (15:18→21:53)
[2016-04-20] MEDS: AZITHROMYCIN INJ 500 MG in SODIUM CHLOR 0.9% 250 ML INJ 250 ML IV SCH (20:24)
[2016-04-20] MEDS: RIVAROXABAN 15 MG TAB OG SCH (20:25)
[2016-04-20] MEDS: CHLORHEXIDINE 0.12% (ORAL KIT) 15 ML CUP MT SCH (20:25)
[2016-04-20] MEDS: VANCOMYCIN 1,000 MG/NS 250 ML IV SCH ×2 (21:32)
--- NOTE | 2016-04-20 22:49 | EKG ---
Date Performed: 04/20/2016 Time Performed: 05:18:48 PTAGE: 80 years EKG: Atrial fibrillation with rapid ventricular response with paroxysmal idioventricular rhythm or aberrant ventricular conduction Incomplete LBBB Possible septal infarct - age undetermined Inferio r/lateral ST-T changes may be due to myocardial ischemia Abnormal ECG PREVIOUS TRACING : 04/19/2016 17.01 DOCTOR: Jarret Palma Interpretating Date/Time 04/20/2016 22:46:07
--- NOTE | 2016-04-20 22:52 | EKG ---
Date Performed: 04/19/2016 Time Performed: 23:44:42 PTAGE: 80 years EKG: Atrial fibrillation with rapid ventricular response with paroxysmal idioventricular rhythm or aberrant ventricular conduction Left bundle branch block Septal ST changes are nonspecific Abnorma l ECG PREVIOUS TRACING : 04/19/2016 17.01 DOCTOR: Jarret Palma Interpretating Date/Time 04/20/2016 22:51:45
--- NOTE | 2016-04-20 23:02 | EKG ---
Date Performed: 04/19/2016 Time Performed: 17:01:44 PTAGE: 80 years EKG: Atrial fibrillation with rapid ventricular response Left bundle branch block Abnormal ECG PREVIOUS TRACING : 11/29/2004 10.43 DOCTOR: Jarret Palma Interpretating Date/Time 04/20/2016 22:58:06
[2016-04-21] VITALS (58 sets, daily range): BP systolic 87–125; BP diastolic 40–81; PULSE 68–122; RESP 7–58; TEMP 97.7–98.8; O2SAT 92–98
[2016-04-21] MEDS: RESP: ALBUTEROL 2.5 MG/IPRATROPIUM 0.5 MG NEB (SCH) NEB ×4 (03:34→21:00)
[2016-04-21] MEDS: CHLORHEXIDINE GLUCONATE 2 % 1 PACK (2 CLOTHS) TOP SCH (04:15)
[2016-04-21 05:27] LABS: AUTOMATED NEUTROPHIL # 14.4 TH/MM3 (1.8-7.7); BASOPHIL # 0.1 TH/MM3 (0-0.2); BASOPHIL % 0.4 % (0.0-2.0); HEMATOCRIT 34.4 % (39.0-51.0); LYMPH % 4.6 % (9.0-44.0); LYMPHOCYTE # 0.7 TH/MM3 (1.0-4.8); MEAN CELL VOLUME 89.4 FL (80.0-100.0); MEAN CORPUSCULAR HEMOGLOBIN 30.1 PG (27.0-34.0); MEAN CORPUSCULAR HGB CONC 33.7 % (32.0-36.0); MONO % 4.1 % (0.0-8.0); NEUT % 90.9 % (16.0-70.0); PLATELET COUNT 198 TH/MM3 (150-450); RED BLOOD COUNT 3.84 MIL/MM3 (4.50-5.90); RED CELL DISTRIBUTION WIDTH 12.2 % (11.6-17.2); WHITE BLOOD COUNT 15.8 TH/MM3 (4.0-11.0)
[2016-04-21] MEDS: PIPERACIL-TAZO 4.5 GM PREMIX 100 ML IV SCH ×3 (05:28→20:15)
[2016-04-21 05:29] LABS: HEMO FLAGS DIFF FINAL
[2016-04-21] MEDS: INSULIN NovoLIN REGULAR SUPPLEMENTAL SCALE SQ SCH ×3 (05:31→18:00)
[2016-04-21 05:43] LABS: CHLORIDE 104 MEQ/L (98-107); POTASSIUM 3.9 MEQ/L (3.5-5.1); SODIUM (NA) 139 MEQ/L (136-145)
[2016-04-21 05:58] LABS: ALKALINE PHOSPHATASE 47 U/L (45-117); ALT (GPT) 85 U/L (12-78); ANION GAP 13 MEQ/L (5-15); AST (GOT) 56 U/L (15-37); BICARBONATE 21.9 MEQ/L (21.0-32.0); BLOOD UREA NITROGEN 36 MG/DL (7-18); GLOMERULAR FILTRATION RATE 37 ML/MIN (>89); TOTAL BILIRUBIN ADULT 0.7 MG/DL (0.2-1.0)
--- NOTE | 2016-04-21 06:25 | RADHPO ---
EXAM DATE/TIME: 04/21/2016 05:55 [facility] COMPARISON: CHEST SINGLE AP, April 20, 2016, 4:40. INDICATIONS : Short of breath. MEDICAL HISTORY : A-fib. Diabetes. SURGICAL HISTORY : Cholecystectomy. ENCOUNTER: Subsequent ACUITY: 2 days PAIN SCORE: Non-responsive. LOCATION: Bilateral chest FINDINGS: The cardiac silhouette is enlarged in transverse diameter. Support lines and tubes are in satisfactor y position. There are findings of congestive heart failure with interstitial and alveolar opacity arndell aterally. Moderate size bilateral pleural effusions are identified. CONCLUSION: 1. Cardiomegaly and findings of congestive heart failure. Bilateral pleural effusions. 2. There has been no significant change when compared to the prior exam. Ramez Grubbs MD on April 21, 2016 at 6:23 Board Certified Radiologist. This report was verified electronically.
--- NOTE | 2016-04-21 06:43 | HHI.CCPN ---
Subjective Remarks/Hospital Course The patient is a 80-year-old male with past medical history of hypertension, hyperlipidemia, diabetes mellitus, hypothyroidism, atrial fibrillation. The patient presented to [place] ED with complaints of chest pain associated with shortness of breath. The patient followed up with his primary care physician yesterday and EKG was obtained which showed new-onset atrial fibrillation and the patient was subsequently started on Xarelto for atrial fibrillation. The patient was advised to go to the ED for evaluation of his shortness of breath and to be seen by senior sql server database developer. In the ER EKG was obtained which showed atrial fibrillation with RVR at a rate of 133 beats per minute. His laboratory data showed worsening leukocytosis with a WBC of 23.0 this morning and creatinine of 1.40 from 1.30 yesterday. Due to worsening respiratory distress the patient was subsequently intubated by the ED physician and placed on full mechanical ventilation. ABG post-intubation showed a pH of 7.27, CO2 44, pAO2 195, bicarb of 20 and saturation of 97% on PRVC/assist control mode with rate of 12, tidal volume 600, PEEP of 5, FIO2 70% and __1.0. He had CT angiogram last night which showed no evidence of pulmonary embolism, however, it showed bilateral mild pleural effusions and scattered nodular densities in the right upper lobe and right middle lobe, in addition to patchy areas of irregular density in the lung bases likely representing areas of atelectasis versus consolidation. Chest x-ray from this morning showed cardiomegaly and findings of congestive heart failure. The patient also had Doppler ultrasound lower extremities which showed no evidence of DVT. In the ER the patient was given ceftriaxone, azithromycin, aspirin, Lasix and Solu-Medrol 125 mg IV push. In addition the patient received Cardizem IV push for atrial fibrillation with RVR. When seen the patient is intubated on full mechanical ventilation and sedated with Diprivan. In addition the patient was started on heparin drip in the ED. SUBJ 04/21/16: Remains in Atrial fibrillation with RVR. CXR remains unchanged with CHF. UO 1.2 L in 24 hours, creat increased from 14. to 1.8. Patient wakes up easily and follows commands. We'll start weaning trials, the patient needs to be diuresed better and chest x-ray improved prior to extubation. WBC count is trending down Objective Vital Signs Date Time Temp Pulse Resp B/P Pulse Ox O2 Delivery O2 Flow Rate FiO2 04/21/16 04:27 96 40 04/21/16 04:00 98.8 100 13 91/40 04/20/16 03:45 Nasal Cannula 4.00 Intake and Output 04/20/16 04/20/16 04/21/16 08:00 16:00 00:00 Intake Total 60 ml 1048 ml 815 ml Output Total 625 ml 1100 ml 350 ml Balance -565 ml -52 ml 465 ml Result Diagram: 04/21/1612 04/21/16511 Other Results Microbiology Date/Time Procedure Status Source Growth 04/20/16 09:30 Legionella Antigen - Final Complete Urine Catheterized Urine PRESUMPTIVE NEGATIVE FOR LEGIONELLA P... 04/20/16 09:30 Streptococcus pneumoniae Antigen (M - Final Complete Urine Catheterized Urine PRESUMPTIVE NEGATIVE FOR STREPTOCOCCU... Laboratory Tests Test 04/20/16 10:02 Blood Gas Puncture Site LT RADIAL Blood Gas Patient Temperature 37.0 Blood Gas HCO3 20 mmol/L (22-26) Blood Gas Base Excess -3.8 mmol/L (-2-2) Blood Gas Oxygen Saturation 96 % (90-100) Arterial Blood pH 7.46 (7.380-7.420) Arterial Blood Partial 28 mmHg (38-42) Pressure CO2 Arterial Blood Partial 96 mmHg Pressure O2 (61-120) Arterial Blood Oxygen Content 15.7 Vol % (12.0-20.0) Arterial Blood 1.3 % (0-4) Carboxyhemoglobin Arterial Blood Methemoglobin 1.0 % (0-2) Blood Gas Hemoglobin 11.5 G/DL (12.0-16.0) Oxygen Delivery Device VENTILATOR Blood Gas Ventilator Setting [facility]//14/600/1./5P Blood Gas Inspired Oxygen 50 % Objective Remarks GENERAL: Intubated wide awake, but appears ill anxious HEENT: Atraumatic, normocephalic. Pupil equal, round and reactive. Extraocular muscles intact. Orally intubated NECK: Supple. Trachea midline. Orally intubated. CARDIOVASCULAR: Irregularly irregular, RVR. Normal S1-S2. No murmurs, rubs or gallops noted. PULMONARY: Bilateral equal air entry with coarse breath sounds. Diminished air entry at the bases ABDOMEN: Soft, nontender, no distension. Positive bowel sounds. \EXTREMITIES: No cyanosis, clubbing. NEURO: Intubated and sedated with fentanyl. Wakes up easily follows commands A/P Assessment and Plan IMPRESSION 1. Acute hypoxemic respiratory failure requiring intubation. 2. Congestive heart failure 3. Pneumonia. 4. Leukocytosis. 5. Atrial fibrillation with RVR. 6. Acute kidney injury. 7. Hyperglycemia with underlying history of diabetes mellitus. 8. Hypertension. 9. Hypothyroidism. RECOMMENDATIONS Neuro: -WNL is on hold continue fentanyl infusion -Daily sedation vacation. Monitor neuro status closely. Resp: -Continue with vent support and maintain sats above 92%. PRVC mode -Initiate spontaneous breathing trials -DuoNeb every 6 hours and when necessary, ventilator bundle -Broad-spectrum antibiotics with Zosyn, vancomycin and azithromycin CVS: -Monitor heart rate and blood pressure closely and maintain MAP greater than 65 mmHg. -The patient had a troponin of 0.3 or less x3. -2-D echo -LV cavity size was moderately dilated. Systolic function was severely reduced. EF 20%. Wall motion assessment suboptimal. The basal portions of the LV appear to be mildly hypokinetic. All other segments are akinetic. -Consulted cardiology service for new onset atrial fibrillation with RVR. Dr. Chao -Continue with Xarelto for atrial fibrillation. -Start Cardizem infusion for rate control : -Monitor renal function, I&0's and electrolyte replacement as needed. -Continue with diuretics IV Lasix q12. Additional Bumex 2 mg IV x1 GI: -Start tube feeds in the form of Glucerna 1.5 with goal rate of 45 mL an hour -Protonix 40 mg IV daily for GI prophylaxis. ID: -Place on broad-spectrum antibiotics in the form of vancomycin, Zosyn and azithromycin. -Monitor for signs of infections which include fever and WBC. -Follow up on blood cultures. ENDO: -Medium scale insulin with Accu-Chek q. 6-hour for glycemic contro -Add Levemir 15 units every 12 hours -TSH is normal HEME: -Monitor CBC and coags as the patient is on Xarelto. -GI prophylaxis with Protonix 40 mg daily and DVT prophylaxis with SCDs and Xarelto Critical care time 32 minutes excluding procedure Patrick Mora MD Apr 21, 2016 06:43
[2016-04-21] MEDS ORDERED: BUMETANIDE INJ 1 MG/4 ML VIAL IV PUSH ONE (06:45)
[2016-04-21] MEDS: DILTIAZEM INJ 100 MG in SODIUM CHLORIDE 0.9% INJ 100 ML IV SCH ×2 (07:59→21:41)
[2016-04-21] MEDS: CHLORHEXIDINE 0.12% (ORAL KIT) 15 ML CUP MT SCH ×2 (08:00→18:16)
[2016-04-21 08:58] LABS: BLOOD GAS BASE EXCESS -2.1 mmol/L (-2-2); BLOOD GAS HCO3 23 mmol/L (22-26); BLOOD GAS O2 HGB SATURATION 95 % (90-100); BLOOD GAS OXYGEN CONTENT 15.8 Vol % (12.0-20.0); BLOOD GAS PCO2 40 mmHg (38-42); BLOOD GAS PO2 94 mmHg (61-120); BLOOD GAS TOTAL HGB 11.7 G/DL (12.0-16.0)
[2016-04-21 08:59] LABS: CRITICAL VALUE NO; DRAW SITE RT RADIAL; FIO2 40 %; NUMBER OF ARTERIAL PUNCTURES 1; OXYGEN DEVICE VENTILATOR; STAT NO; ULNAR PULSE PRESENT; VENT SETTINGS 5 PEEP/5 PS
[2016-04-21] MEDS: SODIUM CHLORIDE 0.9% FLUSH 5 ML FLUSH FLUSH SCH ×2 (09:00→20:20)
[2016-04-21] MEDS: ASPIRIN 81 MG CHEW TAB OG-TUBE SCH (09:50)
[2016-04-21] MEDS: FUROSEMIDE 40 MG/4 ML VIAL IV PUSH SCH ×2 (09:50→18:16)
[2016-04-21] MEDS: PANTOPRAZOLE SODIUM 40 MG VIAL IV SCH (09:50)
[2016-04-21] MEDS: VANCOMYCIN 1,000 MG/NS 250 ML IV SCH ×4 (09:51→21:41)
[2016-04-21] MEDS: INSULIN DETEMIR 100 UNITS/ML VIAL SQ SCH ×2 (09:52→20:20)
[2016-04-21] MEDS: RIVAROXABAN 15 MG TAB OG SCH (20:16)
[2016-04-21] MEDS: AZITHROMYCIN INJ 500 MG in SODIUM CHLOR 0.9% 250 ML INJ 250 ML IV SCH (20:18)
[2016-04-22] VITALS (43 sets, daily range): BP systolic 100–142; BP diastolic 48–75; PULSE 60–106; RESP 12–36; TEMP 97.1–97.9; O2SAT 93–100
[2016-04-22] MEDS: INSULIN NovoLIN REGULAR SUPPLEMENTAL SCALE SQ SCH ×4 (00:26→17:22)
[2016-04-22] MEDS ORDERED: DILTIAZEM 125 MG/NS 100 ML IV SCH ×2 (04:00)
[2016-04-22] MEDS: CHLORHEXIDINE GLUCONATE 2 % 1 PACK (2 CLOTHS) TOP SCH (04:06)
[2016-04-22] MEDS: PIPERACIL-TAZO 4.5 GM PREMIX 100 ML IV SCH (04:07)
[2016-04-22] MEDS: RESP: ALBUTEROL 2.5 MG/IPRATROPIUM 0.5 MG NEB (SCH) NEB ×4 (04:16→21:59)
[2016-04-22 05:24] LABS: HEMATOCRIT 34.7 % (39.0-51.0); MEAN CELL VOLUME 89.2 FL (80.0-100.0); MEAN CORPUSCULAR HEMOGLOBIN 29.4 PG (27.0-34.0); PLATELET COUNT 219 TH/MM3 (150-450); RED BLOOD COUNT 3.89 MIL/MM3 (4.50-5.90); RED CELL DISTRIBUTION WIDTH 12.7 % (11.6-17.2); REVIEW FLAG FINAL; WHITE BLOOD COUNT 15.2 TH/MM3 (4.0-11.0)
[2016-04-22 05:32] LABS: CHLORIDE 102 MEQ/L (98-107); POTASSIUM 3.5 MEQ/L (3.5-5.1); SODIUM (NA) 141 MEQ/L (136-145)
[2016-04-22 05:36] LABS: ANION GAP 11 MEQ/L (5-15); BICARBONATE 27.7 MEQ/L (21.0-32.0)
--- NOTE | 2016-04-22 05:40 | RADHPO ---
EXAM DATE/TIME: 04/22/2016 05:07 [facility] COMPARISON: CHEST SINGLE AP, April 21, 2016, 5:55. INDICATIONS : Shortness of breath MEDICAL HISTORY : A-fib. Diabetes. SURGICAL HISTORY : None. ENCOUNTER: Subsequent ACUITY: 3 days PAIN SCORE: 0/10 LOCATION: Bilateral chest FINDINGS: The cardiac silhouette is enlarged in transverse diameter. There are findings of congestive heart jay lure with interstitial and alveolar opacity bilaterally. The findings are improved when compared with the prior exam. Moderate size bilateral pleural effusions are identified. Support lines and tubes jane ve been removed. CONCLUSION: 1. Cardiomegaly and findings of congestive heart failure. This is improving when compared with the pr ior study Ramez Grubbs MD on April 22, 2016 at 5:38 Board Certified Radiologist. This report was verified electronically.
[2016-04-22 05:44] LABS: ALKALINE PHOSPHATASE 46 U/L (45-117); ALT (GPT) 106 U/L (12-78); AST (GOT) 45 U/L (15-37); BLOOD UREA NITROGEN 34 MG/DL (7-18); GLOMERULAR FILTRATION RATE 34 ML/MIN (>89); TOTAL BILIRUBIN ADULT 0.8 MG/DL (0.2-1.0)
--- NOTE | 2016-04-22 06:40 | PD.TRANSFR ---
Transfer Summary Admission Date Apr 19, 2016 at 19:25 Transfer Date: Apr 22, 2016 Admitting Diagnosis new onset afib with RVR, multilobar pneumonia Diagnoses: (1) Acute hypoxemic respiratory failure Diagnosis: Principal (2) Sepsis Diagnosis: Principal (3) Atrial fibrillation with rapid ventricular response Diagnosis: Principal (4) Pneumonia Diagnosis: Principal (5) Pleural effusion Diagnosis: Principal Transfer Summary/Subjective The patient is a 80-year-old male with past medical history of hypertension, hyperlipidemia, diabetes mellitus, hypothyroidism, atrial fibrillation. The patient presented to [facility] with complaints of chest pain associated with shortness of breath. The patient followed up with his primary care physician yesterday and EKG was obtained which showed new-onset atrial fibrillation and the patient was subsequently started on Xarelto for atrial fibrillation. He came to ED for evaluation of his shortness of breath and to be seen by teacher adult education. In the ER EKG was obtained which showed atrial fibrillation with RVR at a rate of 133 beats per minute. His laboratory data showed worsening leukocytosis with a WBC of 23.0 this morning and creatinine of 1.40 from 1.30 yesterday. Due to worsening respiratory distress the patient was subsequently intubated by the ED physician and placed on full mechanical ventilation. ABG post-intubation showed a pH of 7.27, CO2 44, pAO2 195, bicarb of 20 and saturation of 97% on PRVC/assist control mode with rate of 12, tidal volume 600, PEEP of 5, FIO2 70%. He had CT angiogram last night which showed no evidence of pulmonary embolism, however, it showed bilateral mild pleural effusions and scattered nodular densities in the right upper lobe and right middle lobe, in addition to patchy areas of irregular density in the lung bases likely representing areas of atelectasis versus consolidation. Chest x-ray from this morning showed cardiomegaly and findings of congestive heart failure. The patient also had Doppler ultrasound lower extremities which showed no evidence of DVT. In the ER the patient was given ceftriaxone, azithromycin, aspirin, Lasix and Solu-Medrol 125 mg IV push. In addition the patient received Cardizem IV push for atrial fibrillation with RVR. When seen the patient is intubated on full mechanical ventilation and sedated with Diprivan. In addition the patient was started on heparin drip in the ED. SUBJ 04/21/16: Remains in Atrial fibrillation with RVR. CXR remains unchanged with CHF. UO 1.2 L in 24 hours, creat increased from 14. to 1.8. Patient wakes up easily and follows commands. We'll start weaning trials, the patient needs to be diuresed better and chest x-ray improved prior to extubation. WBC count is trending down 04/22/15: Patient was extubated yesterday 04/21/16 tolerating well. Urine output 3.2 L in 24 hours. Creatinine slightly increased 1.8-1.9. A. fib rate is controlled on Cardizem infusion was discontinued infusion and start by mouth. Blood sugar improved control. Objective Vital Signs Date Time Temp Pulse Resp B/P Pulse Ox O2 Delivery O2 Flow Rate FiO2 04/22/16 06:00 87 04/22/16 04:31 12 109/64 97 04/22/16 04:01 97.9 04/21/16 21:01 Nasal Cannula 3.00 04/21/16 08:00 40 Intake and Output 04/21/16 04/21/16 04/22/16 08:00 16:00 00:00 Intake Total 939 ml 1187 ml 607 ml Output Total 440 ml 1150 ml 1250 ml Balance 499 ml 37 ml -643 ml Result Diagram: 04/22/16 0510 04/22/16 0510 Other Results Microbiology Date/Time Procedure Status Source Growth 04/20/16 09:30 Legionella Antigen - Final Complete Urine Catheterized Urine PRESUMPTIVE NEGATIVE FOR LEGIONELLA P... 04/20/16 09:30 Streptococcus pneumoniae Antigen (M - Final Complete Urine Catheterized Urine PRESUMPTIVE NEGATIVE FOR STREPTOCOCCU... Laboratory Tests Test 04/21/16 08:50 Blood Gas Puncture Site RT RADIAL Blood Gas Patient Temperature 37.0 Blood Gas HCO3 23 mmol/L (22-26) Blood Gas Base Excess -2.1 mmol/L (-2-2) Blood Gas Oxygen Saturation 95 % (90-100) Arterial Blood pH 7.37 (7.380-7.420) Arterial Blood Partial 40 mmHg (38-42) Pressure CO2 Arterial Blood Partial 94 mmHg Pressure O2 (61-120) Arterial Blood Oxygen Content 15.8 Vol % (12.0-20.0) Arterial Blood 1.0 % (0-4) Carboxyhemoglobin Arterial Blood Methemoglobin 1.0 % (0-2) Blood Gas Hemoglobin 11.7 G/DL (12.0-16.0) Oxygen Delivery Device VENTILATOR Blood Gas Ventilator Setting 5 PEEP/5 PS Blood Gas Inspired Oxygen 40 % Objective Remarks GENERAL: Awake alert oriented HEENT: Atraumatic, normocephalic. Pupil equal, round and reactive. Extraocular muscles intact. NECK: Supple. Trachea midline. CARDIOVASCULAR: Irregularly irregular, heart rate in 70s. No murmurs, rubs or gallops noted. PULMONARY: Bilateral equal air entry with coarse breath sounds. Diminished air entry at the bases ABDOMEN: Soft, nontender, no distension. Positive bowel sounds. EXTREMITIES: No cyanosis, clubbing. NEURO: Alert awake follows commands no focal deficits Urinary Catheter: Yes Assessment to: Continue A/P Assessment and Plan IMPRESSION 1. Acute hypoxemic respiratory failure requiring intubation-resolved 2. Congestive heart failure 3. Pneumonia. 4. Sepsis. 5. Atrial fibrillation with RVR. 6. Acute kidney failure. 7. Hyperglycemia with underlying history of diabetes mellitus. 8. Hypertension. 9. Hypothyroidism. RECOMMENDATIONS Neuro: -Discontinue all continuous sedation. Otherwise minimize sedation -Monitor neuro status closely. Resp: -Extubated 04/21/16. Tolerating well -DuoNeb every 6 hours and when necessary -Broad-spectrum antibiotics with Zosyn, discontinue vancomycin and azithromycin CVS: -Monitor heart rate and blood pressure closely and maintain MAP greater than 65 mmHg. -The patient had a troponin of 0.3 or less x3. -2-D echo -LV cavity size was moderately dilated. Systolic function was severely reduced. EF 20%. Wall motion assessment suboptimal. The basal portions of the LV appear to be mildly hypokinetic. All other segments are akinetic. Cardiology Dr. ortiz -Continue with Xarelto for atrial fibrillation. -DC Cardizem infusion, start cardizem 30 mg QID for rate control : -Monitor renal function, I&0's and electrolyte replacement as needed. -Continue with diuretics IV Lasix q12. GI: -Start 1800 ADA, renal diet -Protonix 40 mg IV daily for GI prophylaxis-DC today ID: -Broad-spectrum antibiotics in the form of Zosyn. Discontinue vancomycin and azithromycin. -Monitor for signs of infections which include fever and WBC. -Follow up on blood cultures-all cultures negative to date ENDO: -Medium scale insulin with Accu-Chek q. 6-hour for glycemic control -Levemir 15 units every 12 hours -TSH is normal HEME: -Monitor CBC and coags as the patient is on Xarelto. -GI prophylaxis with Protonix 40 mg daily-DC today and DVT prophylaxis with SCDs and Xarelto Level 3 [facility] consulted to assume care in am 04/23/16 Patrick Mora MD Apr 22, 2016 06:40
[2016-04-22] MEDS: CHLORHEXIDINE 0.12% (ORAL KIT) 15 ML CUP MT SCH (08:00)
[2016-04-22] MEDS: PIPERACIL-TAZO 3.375 GM PREMIX 50 ML IV SCH ×2 (08:27→16:33)
[2016-04-22] MEDS: DILTIAZEM HCL 30 MG TAB PO SCH ×4 (08:27→21:02)
[2016-04-22] MEDS: ASPIRIN 81 MG CHEW TAB OG-TUBE SCH (08:27)
[2016-04-22] MEDS: FUROSEMIDE 40 MG/4 ML VIAL IV PUSH SCH ×2 (08:27→17:22)
[2016-04-22] MEDS: INSULIN DETEMIR 100 UNITS/ML VIAL SQ SCH ×2 (08:28→21:03)
[2016-04-22] MEDS: SODIUM CHLORIDE 0.9% FLUSH 5 ML FLUSH FLUSH SCH ×2 (08:29→21:03)
[2016-04-22 19:58] LABS: BICARBONATE 32.5 MEQ/L (21.0-32.0); MAGNESIUM 2.2 MG/DL (1.5-2.5)
[2016-04-22] MEDS: RIVAROXABAN 15 MG TAB OG SCH (21:02)
[2016-04-22] MEDS: POTASSIUM CHLORIDE 20 MEQ CONTROLLED RELEASE TAB PO SCH ×2 (21:02→22:10)
[2016-04-23] VITALS (9 sets, daily range): BP systolic 118–125; BP diastolic 69–78; PULSE 72–91; RESP 17–20; TEMP 97.1–98.2; O2SAT 95–99
[2016-04-23] MEDS: PIPERACIL-TAZO 3.375 GM PREMIX 50 ML IV SCH (00:21)
[2016-04-23] MEDS: RESP: ALBUTEROL 2.5 MG/IPRATROPIUM 0.5 MG NEB (SCH) NEB ×4 (03:36→20:56)
[2016-04-23] MEDS: CHLORHEXIDINE GLUCONATE 2 % 1 PACK (2 CLOTHS) TOP SCH (04:00)
[2016-04-23] MEDS: INSULIN NovoLIN REGULAR SUPPLEMENTAL SCALE SQ SCH ×5 (06:18→23:54)
[2016-04-23 07:23] LABS: AUTOMATED NEUTROPHIL # 8.8 TH/MM3 (1.8-7.7); BASOPHIL % 0.3 % (0.0-2.0); EOSINOPHIL # 0.5 TH/MM3 (0-0.4); EOSINOPHIL % 4.3 % (0.0-4.0); HEMATOCRIT 35.7 % (39.0-51.0); HEMO FLAGS DIFF FINAL; LYMPH % 14.5 % (9.0-44.0); LYMPHOCYTE # 1.7 TH/MM3 (1.0-4.8); MEAN CELL VOLUME 88.6 FL (80.0-100.0); MEAN CORPUSCULAR HEMOGLOBIN 30.2 PG (27.0-34.0); MEAN CORPUSCULAR HGB CONC 34.1 % (32.0-36.0); MONO % 7.5 % (0.0-8.0); NEUT % 73.4 % (16.0-70.0); PLATELET COUNT 224 TH/MM3 (150-450); RED BLOOD COUNT 4.04 MIL/MM3 (4.50-5.90); RED CELL DISTRIBUTION WIDTH 12.5 % (11.6-17.2); WHITE BLOOD COUNT 11.9 TH/MM3 (4.0-11.0)
[2016-04-23 07:31] LABS: CHLORIDE 102 MEQ/L (98-107); POTASSIUM 3.7 MEQ/L (3.5-5.1); SODIUM (NA) 142 MEQ/L (136-145)
[2016-04-23 07:37] LABS: ANION GAP 7 MEQ/L (5-15); BICARBONATE 32.8 MEQ/L (21.0-32.0); BLOOD UREA NITROGEN 25 MG/DL (7-18)
--- NOTE | 2016-04-23 07:37 | PD.CARD.PN ---
Subjective Subjective Remarks CTSP for "VT" Denies CP or SOB. Reviewed records and telemetry strips. Objective Medications Current Medications Medications (Trade) Dose Ordered Sig/Tamie Route PRN Reason Start Time Stop Time Status Last Admin Dose Admin IV Flush (NS Flush) 2 ml UNSCH PRN FLUSH FLUSH AFTER USING IV ACCESS 04/19/16 20:15 04/20/16 04:00 IV Flush (NS Flush) 2 ml BID FLUSH 04/19/16 21:00 04/22/16 21:03 Naloxone HCl (Narcan Inj) 0.4 mg UNSCH PRN IV SEE LABEL COMMENTS 04/19/16 20:15 Furosemide (Lasix Inj) 40 mg BID@18 IV PUSH 04/20/16 09:00 04/22/16 17:22 Dextrose (D50w (Vial) Inj) 25 ml UNSCH PRN IV PUSH HYPOGLYCEMIA-SEE COMMENTS 04/20/16 07:15 Glucagon (Glucagon Inj) 1 mg UNSCH PRN OTHER HYPOGLYCEMIA-SEE COMMENTS 04/20/16 07:15 Chlorhexidine Gluconate (Chlorhexidine 2% Cloth) 3 pack Taper DAILY@04 TOP 04/21/16 04:00 04/17/17 03:59 04/22/16 04:06 Rivaroxaban (Xarelto) 15 mg HS OG 04/20/16 21:00 04/22/16 21:02 Insulin Human Regular (NovoLIN R SUPPLEMENTAL SCALE) 1 Q6HR SQ 04/20/16 12:00 04/22/16 17:22 Aspirin (Aspirin Chew) 81 mg DAILY OG-TUBE 04/20/16 10:30 04/22/16 08:27 Insulin Detemir 15 units 15 units Q12HR SQ 04/21/16 09:00 04/22/16 21:03 Piperacillin Sod/ Tazobactam Sod (Zosyn 3.375 Gm Premix) 50 ml @ 100 mls/hr Q8H IV 04/22/16 08:00 04/23/16 00:21 Diltiazem HCl (Cardizem Cd) 120 mg DAILY PO 04/23/16 09:00 Vital Signs / I&O Vital Signs Date Time Temp Pulse Resp B/P Pulse Ox O2 Delivery O2 Flow Rate FiO2 04/23/16 04:00 97.1 86 18 121/72 97 04/23/16 00:00 97.3 72 18 121/69 99 04/22/16 21:59 96 Nasal Cannula 2.00 04/22/16 20:00 88 04/22/16 20:00 97.1 86 18 142/74 100 04/22/16 16:45 97.8 88 18 96 04/22/16 16:30 86 18 97 04/22/16 16:15 82 18 97 04/22/16 16:00 80 24 98 04/22/16 12:00 97.8 84 23 96 04/22/16 11:00 92 21 96 04/22/16 10:00 90 25 98 04/22/16 09:57 106 29 117/75 93 04/22/16 09:27 97 Nasal Cannula 2.00 04/22/16 09:00 97.7 76 21 98 04/22/16 08:31 80 22 122/65 97 04/22/16 08:01 90 32 120/48 96 04/22/16 08:00 90 36 96 04/22/16 07:31 72 15 111/58 99 I/O 04/22/16 04/22/16 04/22/16 04/23/16 04/23/16 04/23/16 07:00 15:00 23:00 07:00 15:00 23:00 Intake Total 983 ml 240 ml Output Total 650 ml 1450 ml 1350 ml 500 ml Balance 333 ml -1450 ml -1350 ml -260 ml Intake Oral 360 ml 240 ml IV Total 623 ml Output Urine Total 650 ml 1450 ml 1350 ml 500 ml # Bowel Movements 0 0 Physical Exam VSS, afebrile. Mild JVD @ 90 deg. Lungs: CTA Heart irreg, s1,s2 Ext: No edema Neuro: intact Laboratory Laboratory Tests Test 04/22/16 19:42 Sodium Level 140 MEQ/L Potassium Level 3.0 MEQ/L Chloride Level 99 MEQ/L Carbon Dioxide Level 32.5 MEQ/L Anion Gap 9 MEQ/L Blood Urea Nitrogen 29 MG/DL Creatinine 1.70 MG/DL Estimat Glomerular Filtration 39 ML/MIN Rate Random Glucose 159 MG/DL Calcium Level 8.5 MG/DL Magnesium Level 2.2 MG/DL Imaging Echo report reviewed. LVEF 20% Mild MR/TR Last 48 hours Impressions Chest X-Ray 04/22/16 0600 Signed Impressions: Service Date/Time: Friday, April 22, 2016 05:07 - CONCLUSION: 1. Cardiomegaly and findings of congestive heart failure. This is improving when compared with the prior study Ramez Grubbs MD Assessment and Plan Problem List: (1) Severe left ventricular systolic dysfunction (2) Acute systolic (congestive) heart failure (3) Cardiomyopathy (4) LBBB (left bundle branch block) (5) Atrial fibrillation Assessment and Plan Add Coreg and christopher inhibitor as tolerates. WCT appears to be afib with aberancy. salesperson floor coverings to PO diuretics. Discussed with patient and KENNETH Pagan). Bubba Sy MD Apr 23, 2016 07:37 Bubba Sy MD Apr 23, 2016 07:37
[2016-04-23 07:40] LABS: ALT (GPT) 96 U/L (12-78); AST (GOT) 34 U/L (15-37); GLOMERULAR FILTRATION RATE 53 ML/MIN (>89)
[2016-04-23 07:42] LABS: TOTAL BILIRUBIN ADULT 0.9 MG/DL (0.2-1.0)
[2016-04-23 07:43] LABS: ALKALINE PHOSPHATASE 57 U/L (45-117)
[2016-04-23] MEDS: ASPIRIN 81 MG CHEW TAB OG-TUBE SCH (07:57)
[2016-04-23] MEDS: SODIUM CHLORIDE 0.9% FLUSH 5 ML FLUSH FLUSH SCH ×2 (07:58→20:59)
[2016-04-23] MEDS: INSULIN DETEMIR 100 UNITS/ML VIAL SQ SCH (07:58)
[2016-04-23] MEDS: DILTIAZEM-CD 120 MG CAP ER PO SCH (08:08)
[2016-04-23] MEDS: POTASSIUM CHLORIDE 20 MEQ CONTROLLED RELEASE TAB PO SCH (08:08)
[2016-04-23] MEDS: RAMIPRIL 1.25 MG CAP PO SCH ×2 (08:08→20:59)
[2016-04-23] MEDS: CARVEDILOL 6.25 MG TAB PO SCH ×2 (08:08→20:59)
[2016-04-23] MEDS: LEVOFLOXACIN 750 MG TAB PO SCH (08:09)
[2016-04-23] MEDS: FUROSEMIDE 40 MG TAB PO SCH (08:09)
--- NOTE | 2016-04-23 08:09 | HHI.PR ---
Subjective Remarks This is a quite pleasant 80 year-old male who recently presented to hospital on 04/19/16 at the request of his primary medical doctor for evaluation of new onset atrial fibrillation. Patient was initially admitted to the medical service and deteriorated throughout the day with congestive heart failure and subsequently intubated for respiratory support. Patient remained on mechanical ventilation until he was extubated on 04/21/16. Patient had continued diuresis during his intubation and had significant urinary output of over 3 L in 24 hours. Patient had Cardizem IV discontinued 04/22/16. He was started on by mouth Cardizem with good rate control. Patient did have echocardiogram performed which did indicate ejection fraction 20% and mildly dilated left and right atrium. Patient no longer required critical care service and was requested for medical team to assume medical management at this time. The time evaluating the patient he is doing much better. He is no longer have any shortness of breath or dyspnea. Heart rate is controlled on by mouth medications. Discussed the case with site foreman Dr. Sy. Patient is very eager to go home, however we need to monitor the patient at least another couple days while medication adjustment can be performed for appropriate management of his atrial fibrillation, cardiomyopathy. Objective Vitals Vital Signs Date Time Temp Pulse Resp B/P Pulse Ox O2 Delivery O2 Flow Rate FiO2 04/23/16 04:00 97.1 86 18 121/72 97 04/23/16 00:00 97.3 72 18 121/69 99 04/22/16 21:59 96 Nasal Cannula 2.00 04/22/16 20:00 88 04/22/16 20:00 97.1 86 18 142/74 100 04/22/16 16:45 97.8 88 18 96 04/22/16 16:30 86 18 97 04/22/16 16:15 82 18 97 04/22/16 16:00 80 24 98 04/22/16 12:00 97.8 84 23 96 04/22/16 11:00 92 21 96 04/22/16 10:00 90 25 98 04/22/16 09:57 106 29 117/75 93 04/22/16 09:27 97 Nasal Cannula 2.00 04/22/16 09:00 97.7 76 21 98 04/22/16 08:31 80 22 122/65 97 04/22/16 08:01 90 32 120/48 96 04/22/16 08:00 90 36 96 I/O 04/22/16 04/22/16 04/22/16 04/23/16 04/23/16 04/23/16 07:00 15:00 23:00 07:00 15:00 23:00 Intake Total 983 ml 240 ml Output Total 650 ml 1450 ml 1350 ml 500 ml Balance 333 ml -1450 ml -1350 ml -260 ml Intake Oral 360 ml 240 ml IV Total 623 ml Output Urine Total 650 ml 1450 ml 1350 ml 500 ml # Bowel Movements 0 0 Result Diagram: 04/23/1665404/23/16654 Objective Remarks GENERAL: Well-developed, well-nourished, in no acute distress. alert and orientated HEENT: Head is normocephalic without any lesions or masses noted. Facial features are symmetric. Eyes: Pupils equal round reactive to light. Extraocular muscles are intact. Conjunctivae were clear. Oropharyngeal: Pharynx without any erythema edema. Tongue is midline without deviation. Buccal mucosa is moist without any masses or lesions NECK: Supple without any masses. Trachea midline no deviation. No JVD, no bruits are appreciated CARDIAC: Regular rhythm, regular rate. S1/S2 are heard. No murmurs gallops or rubs. LUNGS: Clear to auscultation bilaterally. No wheeze, rhonchi or rales. No use of accessory muscles on inspiration or expiration. ABDOMEN: Soft, nontender. Nondistended. Bowel sounds heard in all 4 quadrants. No organomegaly or masses. Negative rebound, negative guarding. Grace in place EXTREMITIES: No edema, pulses are equal bilaterally. No cyanosis or clubbing NEUROLOGY: Mood and affect appear appropriate. Cranial nerves II through XII grossly intact. Muscle strength 5/5 in upper and lower extremities bilaterally. Deep tendon reflexes are 2+ in upper and lower extremities bilaterally. Urinary Catheter: Yes Assessment to: Remove Grace insert reason: Measure Accurate Output Date of Removal: Apr 23, 2016 Vascular Central Line Catheter: No A/P Assessment and Plan New onset atrial fibrillation with RVR: Patient was initially on Cardizem IV which has been discontinued on 04/22/16. Patient has been converted to by mouth Cardizem 30 mg 4 times daily and simply change to Cardizem CD 120 mg daily. Heart rate has remained in good control. Patient is anticoagulated with Xarelto. Cardiology is following the patient Acute hypoxic respiratory failure required intubation: Secondary to congestive heart failure. Patient has been successfully extubated on 04/21/16. Patient is on nasal cannula oxygen with good O2 saturations. Chest x-ray shows cardiomegaly with findings of congestive heart failure that is improving. Continue nebulizer treatments, O2 supplementation Acute systolic congestive heart failure: Likely secondary to combination of atrial fibrillation, cardiomyopathy. Echocardiogram does indicate ejection fraction 20% with mildly dilated left and right atrium. We'll discontinue IV Lasix and start Lasix 40 mg by mouth daily. Patient is had significant urinary output of 6L over the last 48 hours. Patient started on beta gini and BRITTANY inhibitor today. Patient counselled on fluid intake and restriction Cardiomyopathy with ejection fraction 20%: Discussed with cardiology who recommends addition of Coreg, BRITTANY inhibitor. Program Dir indicated that if blood pressure does not continue to support additional medications. Can wean off of Cardizem and continue Coreg and BRITTANY inhibitor. Consolidation noted on chest x-ray: Could be related to congestive heart failure, however patient has been on spectrum antibiotics to include vancomycin , Zosyn, Zithromax. Sputum culture did not indicate any bacterial growth. We' ll discontinue IV antibiotics and start Levaquin by mouth daily Hypertension: Blood pressure stable this time. Will need monitor closely due to additional medications today. Acute kidney injury: Could be related to hypoperfusion, renal functions are improving nicely. Continue monitor renal function, avoid nephrotoxins Leukocytosis: Improving nicely. Likely reactive. Continue monitor CBC Diabetes: Accu-Cheks with sliding scale insulin Hypothyroidism: Continue replacement therapy DVT prevention: Patient is on Xarelto Written by Rich Graves PA-C, acting as scribe for Dr. Hernandez on 04/23/16 at 1420. The documentation accurately reflects the work and decisions performed face-to- face by Dr. Hernandez on 04/23/16 at 1420. Discharge Planning Discharge planning 24-48 hours depending on response to medication adjustment Rich Graves Apr 23, 2016 08:09
[2016-04-23] MEDS: LEVOTHYROXINE SODIUM 125 MCG TAB PO SCH (09:35)
[2016-04-23] MEDS: LORATADINE 10 MG TAB PO SCH (10:55)
[2016-04-23] MEDS: glipiZIDE 5 MG TAB PO SCH (16:33)
[2016-04-23] MEDS: ALPRAZolam 0.25 MG TAB PO PRN (16:33)
[2016-04-23] MEDS: RIVAROXABAN 15 MG TAB OG SCH (20:59)
[2016-04-24] VITALS (8 sets, daily range): BP systolic 105–124; BP diastolic 67–81; PULSE 68–117; RESP 17–20; TEMP 95.5–97.9; O2SAT 95–98
[2016-04-24] MEDS: RESP: ALBUTEROL 2.5 MG/IPRATROPIUM 0.5 MG NEB (SCH) NEB ×2 (02:59→09:17)
[2016-04-24] MEDS: ALPRAZolam 0.25 MG TAB PO PRN ×3 (03:48→22:57)
[2016-04-24] MEDS: INSULIN NovoLIN REGULAR SUPPLEMENTAL SCALE SQ SCH ×4 (06:00→23:15)
[2016-04-24] MEDS: LEVOTHYROXINE SODIUM 125 MCG TAB PO SCH (06:28)
[2016-04-24 06:56] LABS: AUTOMATED NEUTROPHIL # 7.1 TH/MM3 (1.8-7.7); BASOPHIL % 0.3 % (0.0-2.0); EOSINOPHIL # 0.8 TH/MM3 (0-0.4); EOSINOPHIL % 7.8 % (0.0-4.0); HEMO FLAGS DIFF FINAL; LYMPH % 18.2 % (9.0-44.0); LYMPHOCYTE # 1.9 TH/MM3 (1.0-4.8); MEAN CELL VOLUME 88.8 FL (80.0-100.0); MEAN CORPUSCULAR HEMOGLOBIN 29.7 PG (27.0-34.0); MEAN CORPUSCULAR HGB CONC 33.5 % (32.0-36.0); MONO % 7.4 % (0.0-8.0); NEUT % 66.3 % (16.0-70.0); PLATELET COUNT 227 TH/MM3 (150-450); RED BLOOD COUNT 4.17 MIL/MM3 (4.50-5.90); RED CELL DISTRIBUTION WIDTH 12.4 % (11.6-17.2); WHITE BLOOD COUNT 10.6 TH/MM3 (4.0-11.0)
[2016-04-24 07:07] LABS: POTASSIUM 3.5 MEQ/L (3.5-5.1)
[2016-04-24 07:10] LABS: BICARBONATE 29.8 MEQ/L (21.0-32.0); MAGNESIUM 2.1 MG/DL (1.5-2.5)
[2016-04-24] MEDS: FUROSEMIDE 40 MG TAB PO SCH (08:02)
[2016-04-24] MEDS: DILTIAZEM-CD 120 MG CAP ER PO SCH (08:02)
[2016-04-24] MEDS: POTASSIUM CHLORIDE 20 MEQ CONTROLLED RELEASE TAB PO SCH (08:02)
[2016-04-24] MEDS: LEVOFLOXACIN 750 MG TAB PO SCH (08:02)
[2016-04-24] MEDS: glipiZIDE 5 MG TAB PO SCH ×2 (08:02→15:58)
[2016-04-24] MEDS: SODIUM CHLORIDE 0.9% FLUSH 5 ML FLUSH FLUSH SCH ×2 (08:03→20:32)
[2016-04-24] MEDS: LORATADINE 10 MG TAB PO SCH (08:03)
[2016-04-24] MEDS: RAMIPRIL 1.25 MG CAP PO SCH ×2 (08:03→20:32)
[2016-04-24] MEDS: CARVEDILOL 6.25 MG TAB PO SCH (08:03)
[2016-04-24] MEDS: ASPIRIN 81 MG CHEW TAB OG-TUBE SCH (08:03)
--- NOTE | 2016-04-24 08:31 | PD.CARD.PN ---
Subjective Subjective Remarks Doing well. No CP, palpitations or SOB. Objective Medications Current Medications Medications (Trade) Dose Ordered Sig/Tamie Route PRN Reason Start Time Stop Time Status Last Admin Dose Admin IV Flush (NS Flush) 2 ml UNSCH PRN FLUSH FLUSH AFTER USING IV ACCESS 04/19/16 20:15 04/20/16 04:00 IV Flush (NS Flush) 2 ml BID FLUSH 04/19/16 21:00 04/23/16 20:59 Naloxone HCl (Narcan Inj) 0.4 mg UNSCH PRN IV SEE LABEL COMMENTS 04/19/16 20:15 Dextrose (D50w (Vial) Inj) 25 ml UNSCH PRN IV PUSH HYPOGLYCEMIA-SEE COMMENTS 04/20/16 07:15 Glucagon (Glucagon Inj) 1 mg UNSCH PRN OTHER HYPOGLYCEMIA-SEE COMMENTS 04/20/16 07:15 Rivaroxaban (Xarelto) 15 mg HS OG 04/20/16 21:00 04/23/16 20:59 Insulin Human Regular (NovoLIN R SUPPLEMENTAL SCALE) 1 Q6HR SQ 04/20/16 12:00 04/22/16 17:22 Aspirin (Aspirin Chew) 81 mg DAILY OG-TUBE 04/20/16 10:30 04/24/16 08:03 Diltiazem HCl (Cardizem Cd) 120 mg DAILY PO 04/23/16 09:00 04/24/16 08:02 Carvedilol (Coreg) 6.25 mg Q12HR PO 04/23/16 09:00 04/24/16 08:03 Ramipril (Altace) 1.25 mg BID PO 04/23/16 09:00 04/24/16 08:03 Levofloxacin (Levaquin) 750 mg DAILY PO 04/23/16 09:00 04/24/16 08:02 Furosemide (Lasix) 40 mg DAILY PO 04/23/16 09:00 04/24/16 08:02 Potassium Chloride (KCl) 20 meq DAILY PO 04/23/16 09:00 04/24/16 08:02 Levothyroxine Sodium (Synthroid) 125 mcg DAILY@06 PO 04/23/16 09:00 04/24/16 06:28 Loratadine (Claritin) 10 mg DAILY PO 04/23/16 10:30 04/24/16 08:03 Glipizide (Glucotrol) 5 mg BID@08,17 PO 04/23/16 17:00 04/24/16 08:02 Alprazolam (Xanax) 0.25 mg Q8H PRN PO ANXIETY 04/23/16 16:15 04/24/16 03:48 Vital Signs / I&O Vital Signs Date Time Temp Pulse Resp B/P Pulse Ox O2 Delivery O2 Flow Rate FiO2 04/24/16 08:00 97.4 86 17 113/81 96 04/24/16 03:51 95.5 70 20 121/79 95 04/24/16 00:00 96.3 78 20 124/77 95 04/23/16 20:55 96 21 04/23/16 20:01 91 04/23/16 20:00 97.3 87 20 125/78 96 04/23/16 16:00 98.2 89 20 118/73 95 04/23/16 12:00 97.6 87 18 122/78 95 04/23/16 10:00 98 Nasal Cannula 2.50 I/O 04/23/16 04/23/16 04/23/16 04/24/16 04/24/16 04/24/16 07:00 15:00 23:00 07:00 15:00 23:00 Intake Total 240 ml 480 ml Output Total 500 ml 450 ml Balance -260 ml 30 ml Intake Oral 240 ml 480 ml Output Urine Total 500 ml 450 ml # Voids 3 1 # Bowel Movements 0 1 1 Physical Exam VSS, afebrile. Mild JVD @ 90 deg. Lungs: CTA Heart irreg, s1,s2 Ext: No edema Neuro: intact Laboratory Laboratory Tests Test 04/24/16 06:33 White Blood Count 10.6 TH/MM3 Red Blood Count 4.17 MIL/MM3 Hemoglobin 12.4 GM/DL Hematocrit 37.0 % Mean Corpuscular Volume 88.8 FL Mean Corpuscular Hemoglobin 29.7 PG Mean Corpuscular Hemoglobin 33.5 % Concent Red Cell Distribution Width 12.4 % Platelet Count 227 TH/MM3 Mean Platelet Volume 9.1 FL Neutrophils (%) (Auto) 66.3 % Lymphocytes (%) (Auto) 18.2 % Monocytes (%) (Auto) 7.4 % Eosinophils (%) (Auto) 7.8 % Basophils (%) (Auto) 0.3 % Neutrophils # (Auto) 7.1 TH/MM3 Lymphocytes # (Auto) 1.9 TH/MM3 Monocytes # (Auto) 0.8 TH/MM3 Eosinophils # (Auto) 0.8 TH/MM3 Basophils # (Auto) 0.0 TH/MM3 CBC Comment DIFF FINAL Differential Comment Sodium Level 141 MEQ/L Potassium Level 3.5 MEQ/L Chloride Level 102 MEQ/L Carbon Dioxide Level 29.8 MEQ/L Anion Gap 9 MEQ/L Blood Urea Nitrogen 25 MG/DL Creatinine 0.99 MG/DL Estimat Glomerular Filtration 73 ML/MIN Rate Random Glucose 96 MG/DL Calcium Level 8.9 MG/DL Magnesium Level 2.1 MG/DL Assessment and Plan Problem List: (1) Severe left ventricular systolic dysfunction (2) Acute systolic (congestive) heart failure (3) Cardiomyopathy (4) LBBB (left bundle branch block) (5) Atrial fibrillation Assessment and Plan Increase Coreg 12.5 mg BID and christopher inhibitor as tolerates. WCT appears to be afib with aberancy, currently improved. putty remover to PO diuretics. Will likely need further W/U of his cardiomyopathy as out patient. Discussed with patient and KENNETH Pagan. Dr. ortiz to see on Monday. Bubba Sy MD Apr 24, 2016 08:31
--- NOTE | 2016-04-24 08:36 | HHI.PR ---
Subjective Remarks Patient seen and examined today with Dr. Hernandez. Patient doing much better. Heart rate controlled on medications. Objective Vitals Vital Signs Date Time Temp Pulse Resp B/P Pulse Ox O2 Delivery O2 Flow Rate FiO2 04/24/16 08:00 97.4 86 17 113/81 96 04/24/16 03:51 95.5 70 20 121/79 95 04/24/16 00:00 96.3 78 20 124/77 95 04/23/16 20:55 96 21 04/23/16 20:01 91 04/23/16 20:00 97.3 87 20 125/78 96 04/23/16 16:00 98.2 89 20 118/73 95 04/23/16 12:00 97.6 87 18 122/78 95 04/23/16 10:00 98 Nasal Cannula 2.50 I/O 04/23/16 04/23/16 04/23/16 04/24/16 04/24/16 04/24/16 07:00 15:00 23:00 07:00 15:00 23:00 Intake Total 240 ml 480 ml Output Total 500 ml 450 ml Balance -260 ml 30 ml Intake Oral 240 ml 480 ml Output Urine Total 500 ml 450 ml # Voids 3 1 # Bowel Movements 0 1 1 Result Diagram: 04/24/1633 04/24/16 06 Objective Remarks GENERAL: Well-developed, well-nourished, in no acute distress. alert and orientated HEENT: Head is normocephalic without any lesions or masses noted. Facial features are symmetric. Eyes: Extraocular muscles are intact. Conjunctivae were clear. NECK: Supple without any masses. Trachea midline no deviation. No JVD, no bruits are appreciated CARDIAC: Regular rhythm, regular rate. S1/S2 are heard. No murmurs gallops or rubs. LUNGS: Clear to auscultation bilaterally. No wheeze, rhonchi or rales. No use of accessory muscles on inspiration or expiration. ABDOMEN: Soft, nontender. Nondistended. Bowel sounds heard in all 4 quadrants. No organomegaly or masses. Negative rebound, negative guarding. Grace in place EXTREMITIES: No edema, pulses are equal bilaterally. No cyanosis or clubbing NEUROLOGY: Mood and affect appear appropriate. Cranial nerves II through XII grossly intact. Moving all extremities, speech is clear Urinary Catheter: No Date of Removal: Apr 23, 2016 Vascular Central Line Catheter: No A/P Assessment and Plan New onset atrial fibrillation with RVR: Controlled Patient was initially on Cardizem IV which has been discontinued on 04/22/16. Patient has been converted to by mouth Cardizem 30 mg 4 times daily and change to Cardizem CD 120 mg daily. Heart rate has remained in good control. Patient is anticoagulated with Xarelto. Cardiology is following the patient Acute hypoxic respiratory failure required intubation: Resolved. Secondary to congestive heart failure. Patient has been successfully extubated on 04/21/16. Patient is on nasal cannula oxygen with good O2 saturations. Chest x-ray shows cardiomegaly with findings of congestive heart failure that is improving. Continue nebulizer treatments, O2 supplementation Acute systolic congestive heart failure: Likely secondary to combination of atrial fibrillation, cardiomyopathy. Echocardiogram does indicate ejection fraction 20% with mildly dilated left and right atrium. We'll discontinue IV Lasix and start Lasix 40 mg by mouth daily. Patient is had significant urinary output of 6L over the last 48 hours. Patient on beta gini and BRITTANY inhibitor. 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 Chaperone recommended continue to follow blood pressure and adjust medications as needed. Recommending patient stay at least 1 more day and be seen by his tactical air defense controller Dr. Chao prior to discharge Consolidation noted on chest x-ray: Could be related to congestive heart failure, however patient has been on spectrum antibiotics to include vancomycin , Zosyn, Zithromax. Sputum culture did not indicate any bacterial growth. Continue Levaquin by mouth daily Hypertension: Blood pressure stable this time. Will need monitor closely due to increase in medications today. Acute kidney injury: Could be related to hypoperfusion, renal functions are improving nicely. avoid nephrotoxins Leukocytosis: Resolved. Likely reactive. Diabetes: Started patient on glipizide 5 mg twice daily. Discontinued Levemir. Accu-Cheks with sliding scale insulin. Has not required sliding scale insulin since 04/22/16 Hypothyroidism: Continue replacement therapy DVT prevention: Patient is on Xarelto Written by Rich Graves PA-C, acting as scribe for Dr. Hernandez on 04/24/16 at 14:52. The documentation accurately reflects the work and decisions performed face-to- face by Dr. Hernandez on 04/24/16 at 14:52. Discharge Planning Discharge planning tomorrow if nothing further planned per cardiology. Rich Graves Apr 24, 2016 08:35 Deysi Hernandez MD Apr 24, 2016 15:24
[2016-04-24] MEDS: CARVEDILOL 12.5 MG TAB PO SCH ×2 (10:35→20:32)
[2016-04-24 12:59] LABS: HEMOGLOBIN A1b 2.2 %; HEMOGLOBIN Ao 82.5 %; HEMOGLOBIN LA1C 1.5 %; HEMOGLOBIN P3 4.2 %
[2016-04-24] MEDS: RIVAROXABAN 15 MG TAB OG SCH (20:32)
[2016-04-25] VITALS: BP 110/67; PULSE 72; RESP 20; TEMP 96; O2SAT 97
[2016-04-25 04:00] VITALS: BP 109/63; PULSE 58; RESP 20; TEMP 96; O2SAT 96
[2016-04-25] MEDS: INSULIN NovoLIN REGULAR SUPPLEMENTAL SCALE SQ SCH ×2 (06:00→11:33)
[2016-04-25] MEDS: LEVOTHYROXINE SODIUM 125 MCG TAB PO SCH (06:20)
[2016-04-25 06:43] LABS: HEMATOCRIT 37.9 % (39.0-51.0); MEAN CELL VOLUME 89.3 FL (80.0-100.0); MEAN CORPUSCULAR HEMOGLOBIN 29.8 PG (27.0-34.0); MEAN CORPUSCULAR HGB CONC 33.3 % (32.0-36.0); PLATELET COUNT 252 TH/MM3 (150-450); RED BLOOD COUNT 4.24 MIL/MM3 (4.50-5.90); REVIEW FLAG FINAL; WHITE BLOOD COUNT 9.5 TH/MM3 (4.0-11.0)
[2016-04-25 07:32] VITALS: O2SAT 98
--- NOTE | 2016-04-25 07:41 | HHI.PR ---
Subjective Remarks Patient seen and examined today. Patient remains asymptomatic. He is on room air with good O2 saturations. Heart rate and blood pressure are controlled on medications. Objective Vitals Vital Signs Date Time Temp Pulse Resp B/P Pulse Ox O2 Delivery O2 Flow Rate FiO2 04/25/16 07:32 98 21 04/25/16 04:00 96.0 58 20 109/63 96 04/25/16 00:00 96.0 72 20 110/67 97 04/24/16 22:55 97 21 04/24/16 20:00 68 04/24/16 20:00 97.4 70 20 105/67 98 04/24/16 20:00 68 04/24/16 16:00 97.7 81 19 118/79 97 04/24/16 12:00 97.9 79 20 120/77 98 04/24/16 09:18 96 21 04/24/16 08:00 117 04/24/16 08:00 97.4 86 17 113/81 96 I/O 04/24/16 04/24/16 04/24/16 04/25/16 04/25/16 04/25/16 06:59 14:59 22:59 06:59 14:59 22:59 Intake Total 330 ml 60 ml Balance 330 ml 60 ml Intake Oral 330 ml 60 ml # Voids 1 2 1 # Bowel Movements 0 0 Result Diagram: 04/25/16 0605 04/24/16 0633 Objective Remarks GENERAL: Well-developed, well-nourished, in no acute distress. alert and orientated HEENT: Head is normocephalic without any lesions or masses noted. Facial features are symmetric. Eyes: Extraocular muscles are intact. Conjunctivae were clear. NECK: Supple without any masses. Trachea midline no deviation. No JVD, no bruits are appreciated CARDIAC: Regular rhythm, regular rate. S1/S2 are heard. No murmurs gallops or rubs. LUNGS: Clear to auscultation bilaterally. No wheeze, rhonchi or rales. No use of accessory muscles on inspiration or expiration. ABDOMEN: Soft, nontender. Nondistended. Bowel sounds heard in all 4 quadrants. No organomegaly or masses. Negative rebound, negative guarding. Grace in place EXTREMITIES: No edema, pulses are equal bilaterally. No cyanosis or clubbing NEUROLOGY: Mood and affect appear appropriate. Cranial nerves II through XII grossly intact. Moving all extremities, speech is clear Urinary Catheter: No Date of Removal: Apr 23, 2016 Vascular Central Line Catheter: No A/P Assessment and Plan New onset atrial fibrillation with RVR: Controlled Patient was initially on Cardizem IV which has been discontinued on 04/22/16. Patient has been converted to by mouth Cardizem 30 mg 4 times daily and change to Cardizem CD 120 mg daily. Heart rate has remained in atrial fibrillation with rate control. Patient is anticoagulated with Xarelto. Cardiology is following the patient Acute hypoxic respiratory failure required intubation: Resolved. Secondary to congestive heart failure. Patient has been successfully extubated on 04/21/16. Patient is on nasal cannula oxygen with good O2 saturations. Chest x-ray shows cardiomegaly with findings of congestive heart failure that is improving. Continue nebulizer treatments, O2 supplementation. Walk study was performed. Patient does not require home oxygen Acute systolic congestive heart failure: Likely secondary to combination of atrial fibrillation, cardiomyopathy. Echocardiogram does indicate ejection fraction 20% with mildly dilated left and right atrium. Continue Lasix 40 mg by mouth daily. Patient has had good response to diuretic with urinary output.. Coreg 12.5 mg twice daily, ramipril 1.25 mg twice daily. Patient counselled on fluid intake and restriction. Cardiomyopathy with ejection fraction 20%: Discussed with cardiology who recommends increasing Coreg, continuing BRITTANY inhibitor. Integrity Consultant recommended continue to follow blood pressure and adjust medications as needed. Patient was seen by Dr. gaytan. Recommending Life Vest prior to discharge. Follow-up with Dr. Chao upon discharge Consolidation noted on chest x-ray: Could be related to congestive heart failure, however patient has been on spectrum antibiotics to include vancomycin , Zosyn, Zithromax. Sputum culture did not indicate any bacterial growth. Continue Levaquin by mouth daily Hypertension: Blood pressure stable this time. Will need monitor closely due to increase in medications today. Acute kidney injury: Could be related to hypoperfusion, renal functions are improving nicely. avoid nephrotoxins Leukocytosis: Resolved. Likely reactive. Diabetes: Glipizide 5 mg twice daily. Discontinued Levemir. Accu-Cheks with sliding scale insulin. Hemoglobin A1c 8.1 Hypothyroidism: Continue replacement therapy DVT prevention: Patient is on Xarelto Written by Rich Graves PA-C, acting as scribe for Dr. Hernandez on 04/25/16 at 930. The documentation accurately reflects the work and decisions performed face-to- face by Dr. Hernandez on 04/25/16 at 930. Discharge Planning Discharge planning once cleared by cardiology Rich Graves Apr 25, 2016 07:41 Rich Graves Apr 25, 2016 07:41
[2016-04-25 08:00] VITALS: BP 119/65; PULSE 70; RESP 20; TEMP 97.4; O2SAT 95
[2016-04-25 08:30] VITALS: O2SAT 96
--- NOTE | 2016-04-25 08:51 | PD.CARD.PN ---
Subjective Subjective Remarks No CP or SOB, c/o cough and insomnia Objective Medications Current Medications Medications (Trade) Dose Ordered Sig/Tamie Route Start Time Stop Time Status Last Admin (NS Flush) 2 ml UNSCH PRN FLUSH 04/19/16 20:15 04/20/16 04:00 (NS Flush) 2 ml BID FLUSH 04/19/16 21:00 04/24/16 20:32 (Narcan Inj) 0.4 mg UNSCH PRN IV 04/19/16 20:15 (D50w (Vial) Inj) 25 ml UNSCH PRN IV PUSH 04/20/16 07:15 (Glucagon Inj) 1 mg UNSCH PRN OTHER 04/20/16 07:15 (Xarelto) 15 mg HS OG 04/20/16 21:00 04/24/16 20:32 (NovoLIN R SUPPLEMENTAL SCALE) 1 Q6HR SQ 04/20/16 12:00 04/24/16 23:15 (Aspirin Chew) 81 mg DAILY OG-TUBE 04/20/16 10:30 04/24/16 08:03 (Cardizem Cd) 120 mg DAILY PO 04/23/16 09:00 04/24/16 08:02 (Altace) 1.25 mg BID PO 04/23/16 09:00 04/24/16 20:32 (Levaquin) 750 mg DAILY PO 04/23/16 09:00 04/24/16 08:02 (Lasix) 40 mg DAILY PO 04/23/16 09:00 04/24/16 08:02 (KCl) 20 meq DAILY PO 04/23/16 09:00 04/24/16 08:02 (Synthroid) 125 mcg DAILY@06 PO 04/23/16 09:00 04/25/16 06:20 (Claritin) 10 mg DAILY PO 04/23/16 10:30 04/24/16 08:03 (Glucotrol) 5 mg BID@08,17 PO 04/23/16 17:00 04/24/16 15:58 (Xanax) 0.25 mg Q8H PRN PO 04/23/16 16:15 04/24/16 22:57 (Coreg) 12.5 mg Q12HR PO 04/24/16 09:00 04/24/16 20:32 Vital Signs / I&O Vital Signs Date Time Temp Pulse Resp B/P Pulse Ox O2 Delivery O2 Flow Rate FiO2 04/25/16 07:32 98 21 04/25/16 04:00 96.0 58 20 109/63 96 04/25/16 00:00 96.0 72 20 110/67 97 04/24/16 22:55 97 21 04/24/16 20:00 68 04/24/16 20:00 97.4 70 20 105/67 98 04/24/16 20:00 68 04/24/16 16:00 97.7 81 19 118/79 97 04/24/16 12:00 97.9 79 20 120/77 98 04/24/16 09:18 96 21 I/O 04/24/16 04/24/16 04/24/16 04/25/16 04/25/16 04/25/16 07:00 15:00 23:00 07:00 15:00 23:00 Intake Total 330 ml 60 ml Balance 330 ml 60 ml Intake Oral 330 ml 60 ml # Voids 1 2 1 # Bowel Movements 0 0 Physical Exam GENERAL: SKIN: Warm and dry. HEAD: Normocephalic. EYES: No scleral icterus. No injection or drainage. NECK: Supple, trachea midline. No JVD or lymphadenopathy. CARDIOVASCULAR: Irregular, without murmurs, gallops, or rubs. RESPIRATORY: Breath sounds equal bilaterally. No accessory muscle use. Few rhonchi. GASTROINTESTINAL: Abdomen soft, non-tender, nondistended. MUSCULOSKELETAL: No cyanosis, or edema. Laboratory Laboratory Tests Test 04/25/16 06:05 White Blood Count 9.5 TH/MM3 Red Blood Count 4.24 MIL/MM3 Hemoglobin 12.6 GM/DL Hematocrit 37.9 % Mean Corpuscular Volume 89.3 FL Mean Corpuscular Hemoglobin 29.8 PG Mean Corpuscular Hemoglobin 33.3 % Concent Red Cell Distribution Width 12.0 % Platelet Count 252 TH/MM3 Mean Platelet Volume 8.8 FL Imaging Last Impressions Chest X-Ray 04/22/16 0600 Signed Impressions: Service Date/Time: Friday, April 22, 2016 05:07 - CONCLUSION: 1. Cardiomegaly and findings of congestive heart failure. This is improving when compared with the prior study Ramez Grubbs MD CT Angiography 04/19/16 5715 Signed Impressions: Service Date/Time: Tuesday, April 19, 2016 18:43 - CONCLUSION: 1. No pulmonary embolus. 2. Bilateral mild pleural effusions being worse on the right. 3. Scattered nodular densities seen in the right upper lobe and right middle lobe. These are most likely post inflammatory given their distribution. They can be conservatively followed. 4. Patchy areas of irregular density in the lung bases likely representing areas of atelectasis or consolidation. Morgan Cloud MD Lower Extremity Ultrasound 04/19/16 0000 Signed Impressions: Service Date/Time: Tuesday, April 19, 2016 17:47 - CONCLUSION: No DVT. Morgan Cloud MD Abdomen X-Ray 04/19/16 0000 Signed Impressions: Service Date/Time: Tuesday, April 19, 2016 20:20 - CONCLUSION: No acute abnormality is seen. Morgan Cloud MD Assessment and Plan Problem List: (1) Severe left ventricular systolic dysfunction (2) Acute systolic (congestive) heart failure (3) Cardiomyopathy (4) LBBB (left bundle branch block) (5) Atrial fibrillation Assessment and Plan Continue anticoagulation, increase Xarelto to 20 mg daily. Continue tx for CHF, improved. Place Life Vest. OK to discharge home. F/u w Dr. Chao as scheduled next week. He will be scheduled for outpt [facility] w Dr. Chao. Problem Qualifiers (1) Atrial fibrillation: Qualified Code: I48.1 - Persistent atrial fibrillation Mela Huang MD Apr 25, 2016 08:51
[2016-04-25] MEDS: LORATADINE 10 MG TAB PO SCH (09:00)
[2016-04-25] MEDS: SODIUM CHLORIDE 0.9% FLUSH 5 ML FLUSH FLUSH SCH (09:00)
[2016-04-25] MEDS ORDERED: CARD120C4 PO (09:29)
[2016-04-25] MEDS ORDERED: LEVA750T PO (09:29)
[2016-04-25] MEDS ORDERED: ALPR.25 PO (09:29)
[2016-04-25] MEDS ORDERED: CARV12.5 PO (09:29)
[2016-04-25] MEDS ORDERED: RAMI1.252 PO (09:29)
[2016-04-25] MEDS ORDERED: XARE20TA PO (09:29)
[2016-04-25] MEDS ORDERED: FURO40TA PO (09:29)
[2016-04-25] MEDS ORDERED: POTA20TA5 PO (09:29)
[2016-04-25] MEDS ORDERED: GLIP5 PO (09:29)
--- NOTE | 2016-04-25 09:31 | HHI.FF ---
Face to Face Verification Diagnosis: (1) Severe left ventricular systolic dysfunction (2) Acute systolic (congestive) heart failure (3) Cardiomyopathy (4) Atrial fibrillation (5) Pneumonia Home Health Nursing Order: Medical education Signs/symptoms of disease process Diabetic education CHF education Medication education-adverse effect Nursing assessment with vital signs I have seen patient Ramez Whalen on 04/25/16. My clinical findings support the need for the requested home health care services because: Patient has SOB Deconditioned w/ increased weakness Need for psychosocial assistance I certify that my clinical findings support that this patient is homebound because: Need for psychosocial assistance Poor cardiac reserve Deysi Hernandez MD Apr 25, 2016 09:30
--- NOTE | 2016-04-25 09:34 | HHI.DS ---
cc: Daryl Chao MD; Bubba Parks MD Discharge Summary Admission Date Apr 19, 2016 at 19:25 Discharge Date: Apr 25, 2016 Admitting Diagnosis new onset afib with RVR, multilobar pneumonia (1) Acute hypoxemic respiratory failure ICD Code: J96.01 Diagnosis: Principal (2) Sepsis ICD Code: A41.9 Diagnosis: Principal (3) Atrial fibrillation with rapid ventricular response ICD Code: I48.91 Diagnosis: Principal (4) Pneumonia ICD Code: J18.9 Diagnosis: Principal (5) Pleural effusion ICD Code: J90 Diagnosis: Principal (6) Cardiomyopathy ICD Code: I42.9 (7) Acute systolic (congestive) heart failure ICD Code: I50.21 Procedures Echocardiogram: Serially reduced systolic function. Ejection fraction 20%. Brief History - From Admission This is a 80-year-old male with past medical history of atrial fibrillation type 2 diabetes and hypertension who presented to the [place] emergency department on April 19 with complaints of chest pain associated with shortness of breath. He was found to be in atrial fibrillation with rapid ventricular rate. The patient overnight developed respiratory distress and was subsequently intubated by the ER physician and placed on mechanical ventilation. Chest x-ray was consistent with pulmonary edema and mild bilateral pleural effusions. Because of leukocytosis he was placed on broad- spectrum IV antibiotics. He was admitted to the protective signal installer care. CBC/BMP: 04/25/16 0605 04/24/16 0633 Significant Findings Laboratory Tests Test 04/22/16 04/23/16 04/24/16 04/25/16 19:42 06:55 06:33 06:05 Potassium Level 3.0 MEQ/L (3.5-5.1) Carbon Dioxide Level 32.5 MEQ/L 32.8 MEQ/L (21.0-32.0) (21.0-32.0) Blood Urea Nitrogen 29 MG/DL (7-18) 25 MG/DL (7-18) 25 MG/DL (7-18) Creatinine 1.70 MG/DL (0.60-1.30) Estimat Glomerular Filtration 39 ML/MIN (>89) 53 ML/MIN (>89) 73 ML/MIN (>89) Rate Random Glucose 159 MG/DL (74-106) White Blood Count 11.9 TH/MM3 (4.0-11.0) Red Blood Count 4.04 MIL/MM3 4.17 MIL/MM3 4.24 MIL/MM3 (4.50-5.90) (4.50-5.90) (4.50-5.90) Hemoglobin 12.2 GM/DL 12.4 GM/DL 12.6 GM/DL (13.0-17.0) (13.0-17.0) (13.0-17.0) Hematocrit 35.7 % 37.0 % 37.9 % (39.0-51.0) (39.0-51.0) (39.0-51.0) Neutrophils (%) (Auto) 73.4 % (16.0-70.0) Eosinophils (%) (Auto) 4.3 % (0.0-4.0) 7.8 % (0.0-4.0) Neutrophils # (Auto) 8.8 TH/MM3 (1.8-7.7) Eosinophils # (Auto) 0.5 TH/MM3 0.8 TH/MM3 (0-0.4) (0-0.4) Alanine Aminotransferase 96 U/L (12-78) (ALT/SGPT) Albumin 3.3 GM/DL (3.4-5.0) Hemoglobin A1c 8.1 % (4.3-6.0) Imaging Last Impressions Chest X-Ray 04/22/16 0600 Signed Impressions: Service Date/Time: Friday, April 22, 2016 05:07 - CONCLUSION: 1. Cardiomegaly and findings of congestive heart failure. This is improving when compared with the prior study Ramez Grubbs MD CT Angiography 04/19/16 1715 Signed Impressions: Service Date/Time: Tuesday, April 19, 2016 18:43 - CONCLUSION: 1. No pulmonary embolus. 2. Bilateral mild pleural effusions being worse on the right. 3. Scattered nodular densities seen in the right upper lobe and right middle lobe. These are most likely post inflammatory given their distribution. They can be conservatively followed. 4. Patchy areas of irregular density in the lung bases likely representing areas of atelectasis or consolidation. Morgan Cloud MD Lower Extremity Ultrasound 04/19/16 0000 Signed Impressions: Service Date/Time: Tuesday, April 19, 2016 17:47 - CONCLUSION: No DVT. Morgan Cloud MD Abdomen X-Ray 04/19/16 0000 Signed Impressions: Service Date/Time: Tuesday, April 19, 2016 20:20 - CONCLUSION: No acute abnormality is seen. Morgan Cloud MD PE at Discharge GENERAL: Well-developed, well-nourished, in no acute distress. alert and orientated HEENT: Head is normocephalic without any lesions or masses noted. Facial features are symmetric. Eyes: Extraocular muscles are intact. Conjunctivae were clear. NECK: Supple without any masses. Trachea midline no deviation. No JVD, no bruits are appreciated CARDIAC: Regular rhythm, regular rate. S1/S2 are heard. No murmurs gallops or rubs. LUNGS: Clear to auscultation bilaterally. No wheeze, rhonchi or rales. No use of accessory muscles on inspiration or expiration. ABDOMEN: Soft, nontender. Nondistended. Bowel sounds heard in all 4 quadrants. No organomegaly or masses. Negative rebound, negative guarding. Grace in place EXTREMITIES: No edema, pulses are equal bilaterally. No cyanosis or clubbing NEUROLOGY: Mood and affect appear appropriate. Cranial nerves II through XII grossly intact. Moving all extremities, speech is clear Transfer Summary The patient is a 80-year-old male with past medical history of hypertension, hyperlipidemia, diabetes mellitus, hypothyroidism, atrial fibrillation. The patient presented to [place] ED with complaints of chest pain associated with shortness of breath. The patient followed up with his primary care physician yesterday and EKG was obtained which showed new-onset atrial fibrillation and the patient was subsequently started on Xarelto for atrial fibrillation. 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 In the ER EKG was obtained which showed atrial fibrillation with RVR at a rate of 133 beats per minute. His laboratory data showed worsening leukocytosis with a WBC of 23.0 this morning and creatinine of 1.40 from 1.30 yesterday. Due to worsening respiratory distress the patient was subsequently intubated by the ED physician and placed on full mechanical ventilation. ABG post-intubation showed a pH of 7.27, CO2 44, pAO2 195, bicarb of 20 and saturation of 97% on PRVC/assist control mode with rate of 12, tidal volume 600, PEEP of 5, FIO2 70%. He had CT angiogram last night which showed no evidence of pulmonary embolism, however, it showed bilateral mild pleural effusions and scattered nodular densities in the right upper lobe and right middle lobe, in addition to patchy areas of irregular density in the lung bases likely representing areas of atelectasis versus consolidation. Chest x-ray from this morning showed cardiomegaly and findings of congestive heart failure. The patient also had Doppler ultrasound lower extremities which showed no evidence of DVT. In the ER the patient was given ceftriaxone, azithromycin, aspirin, Lasix and Solu-Medrol 125 mg IV push. In addition the patient received Cardizem IV push for atrial fibrillation with RVR. When seen the patient is intubated on full mechanical ventilation and sedated with Diprivan. In addition the patient was started on heparin drip in the ED. SUBJ 04/21/16: Remains in Atrial fibrillation with RVR. CXR remains unchanged with CHF. UO 1.2 L in 24 hours, creat increased from 14. to 1.8. Patient wakes up easily and follows commands. We'll start weaning trials, the patient needs to be diuresed better and chest x-ray improved prior to extubation. WBC count is trending down 04/22/15: Patient was extubated yesterday 04/21/16 tolerating well. Urine output 3.2 L in 24 hours. Creatinine slightly increased 1.8-1.9. A. fib rate is controlled on Cardizem infusion was discontinued infusion and start by mouth. Blood sugar improved control. Hospital Course This is a quite pleasant 80 year-old male who recently presented to hospital on 04/19/16 at the request of his primary medical doctor for evaluation of new onset atrial fibrillation. Patient was initially admitted to the medical service and deteriorated throughout the day with congestive heart failure and subsequently intubated for respiratory support. Patient remained on mechanical ventilation until he was extubated on 04/21/16. Patient had continued diuresis during his intubation and had significant urinary output of over 3 L in 24 hours. Patient had Cardizem IV discontinued 04/22/16. He was started on by mouth Cardizem with good rate control. Patient did have echocardiogram performed which did indicate ejection fraction 20% and mildly dilated left and right atrium. Patient no longer required critical care service and was requested for medical team to assume medical management at that time. Dr. Chao did evaluate the patient initially while he was intubated and sedated. Since then Dr. Sy follow the patient. Due to the patient' s severe cardiomyopathy. Patient started on additional medication to include Coreg, BRITTANY inhibitor. Medications were adjusted. Heart rate and blood pressure remained stable. Patient no longer symptomatic. Due to the patient have a severe cardiomyopathy. Dr. Huang evaluated the patient and recommending LifeVest be placed prior to discharge. Patient will require cardioprotection until further outpatient workup can be done. He indicates that patient will likely require AICD placement in the future once patient has stabilized. Plan discharge once LifeVest has been arranged. Pt Condition on Discharge: Stable Discharge Disposition: Disch w/ Home Health Serv Discharge Time: > 30 minutes Discharge Instructions DIET: Follow Instructions for: Heart Healthy Diet, Diabetic Diet Fluid Restrictions: 2,000 mL Activities you can perform: Regular-No Restrictions Follow up Referrals: Cardiology - [address] Chao PCP Follow-up - 1 Week New Medications: Alprazolam (Xanax) 0.25 Mg Tab 0.25 MG PO Q8H PRN ANXIETY #15 TAB Carvedilol (Coreg) 12.5 Mg Tab 12.5 MG PO Q12HR bluild heart muscle #60 TAB Diltiazem CD 24 HR (Cardizem CD 24 HR) 120 Mg Caper 120 MG PO DAILY control heart rate #30 CAP Furosemide (Furosemide) 40 Mg Tab 40 MG PO DAILY edema #30 TAB Glipizide (Glucotrol) 5 Mg Tab 5 MG PO BID@08,17 Blood Sugar Management #60 TAB Levofloxacin (Levaquin) 750 Mg Tab 750 MG PO DAILY Infection #4 TAB Potassium Chloride Microencaps (Potassium Chloride Microencaps) 20 Meq Tab 20 MEQ PO DAILY Electrolyte Replacement #30 TAB Ramipril (Ramipril) 1.25 Mg Cap 1.25 MG PO BID Blood Pressure Management #60 CAP Rivaroxaban (Xarelto) 20 Mg Tab 20 MG PO HS prevent stroke #30 TAB Continued Medications: Aspirin (Aspir-81) 81 Mg Tabdr Levothyroxine (Synthroid) 125 Mcg Tab 125 MCG PO DAILY Thyroid #30 Ref 0 TAB Discontinued Medications: Metformin (Metformin) 500 Mg Tab 500 MG PO BIDPC With meals Blood Sugar Management #60 Ref 0 TAB Olmesartan (Benicar) 5 Mg Tab 10 MG PO DAILY Blood Pressure Management #60 Ref 0 TAB Rivaroxaban (Xarelto) 10 Mg Tab 10 MG PO DAILY Blood Clot Prevention Ref 0 TAB Additional Information Written by Rich Graves PA-C, acting as scribe for Dr. Hernandez on 04/25/16 at 9:30. The documentation accurately reflects the work and decisions performed face-to- face by Dr. Hernandez on 04/25/16 at 9:30. Rich Graves Apr 25, 2016 09:34 Deysi Hernandez MD Apr 25, 2016 10:44
[2016-04-25] MEDS: FUROSEMIDE 40 MG TAB PO SCH (09:36)
[2016-04-25] MEDS: glipiZIDE 5 MG TAB PO SCH (09:36)
[2016-04-25] MEDS: RAMIPRIL 1.25 MG CAP PO SCH (09:36)
[2016-04-25] MEDS: CARVEDILOL 12.5 MG TAB PO SCH (09:36)
[2016-04-25] MEDS: ASPIRIN 81 MG CHEW TAB OG-TUBE SCH (09:36)
[2016-04-25] MEDS: POTASSIUM CHLORIDE 20 MEQ CONTROLLED RELEASE TAB PO SCH (09:36)
[2016-04-25] MEDS: LEVOFLOXACIN 750 MG TAB PO SCH (09:37)
[2016-04-25] MEDS: DILTIAZEM-CD 120 MG CAP ER PO SCH (09:37)
[2016-04-25 12:00] VITALS: BP 113/68; PULSE 76; RESP 20; TEMP 97.3; O2SAT 97
[2016-04-25] MEDS: ALPRAZolam 0.25 MG TAB PO PRN (13:39)
[2016-04-25] MEDS ORDERED: RIVAROXABAN 20 MG TAB PO SCH (21:00)
== END 2016-04-25 15:44 | disposition home or self-care (01) | DRG 208 ==
LOC: PHED 16:47 → PHEDA 19:25 → PH3A 04-20 00:21 → PHICU 04-20 03:33 → PH3B 04-22 17:55
PROVIDERS: ADMIT Family Medicine; ATTEND Family Medicine
PROC: 0BH17EZ Insertion of Endotracheal Airway into Trachea, Via Natural or Artificial Opening (ICD-10-PCS; principal; 2016-04-19)
PROC: 5A1945Z Respiratory Ventilation, 24-96 Consecutive Hours (ICD-10-PCS; 2016-04-19)
DX: J96.01 Acute respiratory failure with hypoxia (principal); J18.9 Pneumonia, unspecified organism; I50.21 Acute systolic (congestive) heart failure; N17.9 Acute kidney failure, unspecified; I48.1 Persistent atrial fibrillation; I11.0 Hypertensive heart disease with heart failure; I42.9 Cardiomyopathy, unspecified; E11.9 Type 2 diabetes mellitus without complications; E03.9 Hypothyroidism, unspecified; E78.5 Hyperlipidemia, unspecified; I44.7 Left bundle-branch block, unspecified; Z79.01 Long term (current) use of anticoagulants
CPT/HCPCS: 31500; 36600; 71010; 71275; 74000; 76937; 80048; 80053; 81001; 82550; 82805; 82948; 83036; 83690; 83735; 83880; 84443; 84484; 85025; 85027; 85610; 85730; 87040; 87070; 87205; 87449; 87641; 93005; 93306; 93970; 94002; 94003; 94150; 94620; 94640; 94664; 94667; 96361; 96374; 96375; C9113; J0456; J0696; J1644; J1940; J2543; J2930; J3010; J3370; J7040; J7050; Q9967

== ENCOUNTER 2016-05-31 09:58 | Day surgery (SDC) | payer MEDICARE, BC ==
[~2016-05-31] VITALS: Ht 172.7 cm; Wt 76.2 kg
[~2016-05-31 09:58] MED LIST: ALPR.25 PO; ASPI81TA81; CARD120C4 PO; CARV12.5 PO; FURO40TA PO; GLIP5 PO; LEVA750T PO; LEVO.125 PO; POTA20TA5 PO; RAMI1.252 PO; XARE20TA PO
[2016-05-31] MEDS ORDERED: NS 1000P @30 MLS/HR (KVO) IV SCH (10:30)
[2016-05-31 10:31] VITALS: BP 129/62; PULSE 77; RESP 18; TEMP 97.9; O2SAT 100
[2016-05-31] MEDS ORDERED: METF500T PO (10:36)
[2016-05-31] MEDS ORDERED: LEVO.125 PO (10:37)
[2016-05-31 10:46] LABS: AUTOMATED NEUTROPHIL # 4.7 TH/MM3 (1.8-7.7); BASOPHIL # 0.1 TH/MM3 (0-0.2); BASOPHIL % 0.8 % (0.0-2.0); EOSINOPHIL # 0.2 TH/MM3 (0-0.4); HEMATOCRIT 38.8 % (39.0-51.0); HEMO FLAGS DIFF FINAL; LYMPH % 35.3 % (9.0-44.0); LYMPHOCYTE # 3.1 TH/MM3 (1.0-4.8); MEAN CELL VOLUME 87.1 FL (80.0-100.0); MEAN CORPUSCULAR HEMOGLOBIN 28.7 PG (27.0-34.0); MONO % 8.6 % (0.0-8.0); NEUT % 53.3 % (16.0-70.0); PLATELET COUNT 239 TH/MM3 (150-450); RED BLOOD COUNT 4.46 MIL/MM3 (4.50-5.90); RED CELL DISTRIBUTION WIDTH 13.5 % (11.6-17.2); WHITE BLOOD COUNT 8.8 TH/MM3 (4.0-11.0)
[2016-05-31 10:57] LABS: PROTHROMBIN TIME - PATIENT 11.3 SEC (9.8-11.6)
[2016-05-31 10:58] LABS: APTT (PATIENT) 25.2 SEC (24.3-30.1)
[2016-05-31 11:04] LABS: BICARBONATE 27.4 MEQ/L (21.0-32.0); POTASSIUM 4.3 MEQ/L (3.5-5.1)
[2016-05-31] MEDS ORDERED: HEPARIN-NS/PF INJ 500 ML ONE (13:26)
[2016-05-31] MEDS ORDERED: MIDAZOLAM HCL 2 MG/2 ML VIAL ONE (13:27)
[2016-05-31] MEDS ORDERED: IOHEXOL 350 MG/ML 100 ML BTL (for Cath Lab) OTHER ONE (14:00)
--- NOTE | 2016-06-01 08:01 | EKG ---
Date Performed: 05/31/2016 Time Performed: 10:50:38 PTAGE: 81 years EKG: Atrial fibrillation with PVC(s) or aberrant ventricular conduction. Left bundle branch bloc k Anteroseptal T wave changes are nonspecific Abnormal ECG Compared to PREVIOUS TRACING , there is less widening of the QRS complex except on the short cycle be ats. The EKG is otherwise without significant change. PREVIOUS TRACIN05/31/2016 10.48 DOCTOR: Charissa Addison Interpretating Date/Time 06/01/2016 07:59:26
--- NOTE | 2016-06-02 07:55 | MA ---
cc: HORTENCIA CANALES HUMAYUN A. M.D. DATE 05/31/2016 PROCEDURE PERFORMED Cardiac catheterization INDICATION FOR CATHETERIZATION 1. Significant cardiomyopathy, congestive heart failure, assess coronary arteries, look for cause of severe congestive heart failure. 2. Atrial fibrillation CONSENT A full informed consent was obtained prior to the procedure. The risks of , bleeding, myocardial infarction, perforation, aspiration, foreseen and unforeseen are reviewed. The patient fully appeared understand the risks. PROCEDURAL STATEMENT The patient was draped and prepped in a sterile manner. Pt sedated for procedure with versed and fentanyl. The right femoral artery was entered using a micropuncture technique with ultrasound with a 4-Belarusian sheath. Left and right coronary catheters were used to intubate the left and right coronaries, pigtail catheter to the ventricle. Multiple angiographic views were carried out and at the end of the catheterization procedure, all catheters and sheaths were removed. Manual pressure was applied until good hemostasis achieved. The patient returned to his room in stable condition. FINDINGS HEMODYNAMIC RESULTS The aortic pressure was 149/15/1 with an elevated mean aortic pressure of 96. The left ventricular pressure was 127 with a left ventricular pressure of 13. There was no evidence of a significant gradient on pullback across the LV outflow tract or aortic valve. LEFT VENTRICULOGRAM The left ventricular ejection fraction was estimated at 35% with no evidence of significant mitral regurgitation. CORONARIES The left main was free of significant disease. It was short. The left anterior descending artery was a large vessel. It gave off a medium-sized diagonal branch that had a 50% ostial stenosis. The circumflex artery was a large artery with a large first obtuse marginal branch. Close to the ostium of the obtuse marginal branch was a 40% stenosis. The obtuse marginal branch is bifurcated into two sub-branches which was markedly tortuous. The right coronary artery was a right dominant vessel with a medium size posterior descending artery and a small posterolateral branch. CONCLUSION Reduced ejection fraction 35%, moderate single-vessel coronary artery disease with 50% diagonal lesion which can be managed medically. PLAN We will plan to discharge the patient later today. We will continue follow-up and try to improve his ejection fraction. If it is not successful, we may have to consider a defibrillator. Daryl Chao MD, YOANDY,[facility]/RONALDOL /2:25 PM /7:34 AM [facility]
== END 2016-05-31 18:54 | disposition home or self-care (01) ==
LOC: HDIC 09:58 → HDOC 09:58
PROVIDERS: ATTEND Internal Medicine Cardiovascular Disease
DX: I25.10 Atherosclerotic heart disease of native coronary artery without angina pectoris (principal); I42.9 Cardiomyopathy, unspecified; I50.9 Heart failure, unspecified; I48.91 Unspecified atrial fibrillation; I10 Essential (primary) hypertension; E11.9 Type 2 diabetes mellitus without complications; E03.9 Hypothyroidism, unspecified; Z79.01 Long term (current) use of anticoagulants
CPT/HCPCS: 80048; 85025; 85610; 85730; 93005; 93458; C1769; C1893; J1644; J2250; J3010; J7030; Q9967

== ENCOUNTER 2017-08-26 17:36 | Emergency (ER) | payer MEDICARE, BC ==
[~2017-08-26] VITALS: Ht 172.7 cm; Wt 78.2 kg
[~2017-08-26 17:36] MED LIST changes: -CARD120C4 PO; -GLIP5 PO; -LEVA750T PO; +METF500T PO
[2017-08-26 17:38] VITALS: BP 129/79; PULSE 128; RESP 26; TEMP 99.2; O2SAT 97
[2017-08-26 18:15] VITALS: BP 134/71; PULSE 122; RESP 20; O2SAT 98
[2017-08-26] MEDS ORDERED: SODIUM CHLORIDE 0.9% FLUSH 10 ML FLUSH IVF PRN (18:15)
--- NOTE | 2017-08-26 18:17 | PD ---
HPI Chief Complaint: Respiratory Symptoms Time Seen by Provider: 18:13 Travel History International Travel<30 days: No Contact w/Intl Traveler<30days: No Traveled to known affect area: No History of Present Illness HPI Patient presents with complaints of vague respiratory symptoms for approximately 2 weeks. States he has had increasing cough, shortness of breath which is worse at night and associated heartburn. Describes the cough as harsh. Denies any specific pain. Denies any nausea vomiting diarrhea or fever. Denies any history of lung disease. Denies any chest pain urinary or bowel symptoms. Past medical history for CHF, atrial fibrillation and coronary artery disease. Compliant with Xarelto for anticoagulation. Compliant with Coreg for rate control. The cough is intermittently productive of mucus. Denies any alleviating or aggravating factors. Attempting Mucinex with little benefit. Taking fluids and food well. PFSH Past Medical History Hx Anticoagulant Therapy: Yes (Xarelto ) Heart Rhythm Problems: Yes (A. FIB) Cancer: No Cardiovascular Problems: Yes (AF) High Cholesterol: No Chest Pain: No Congestive Heart Failure: Yes (on admit) Diabetes: Yes (Type 2 ) Patient Takes Glucophage: Yes Diminished Hearing: No Endocrine: Yes Gastrointestinal Disorders: No Glaucoma: No Genitourinary: No Hepatitis: No Hiatal Hernia: No Hypertension: Yes Immune Disorder: No Musculoskeletal: No Psychiatric: No Reproductive: No Respiratory: Yes (SOB) Integumentary: No Pneumonia: Yes Thyroid Disease: Yes (HYPOTHYROID) Tetanus Vaccination: < 5 Years Influenza Vaccination: No Past Surgical History Abdominal Surgery: No Cardiac Surgery: Yes (carotid artery surgery) Cholecystectomy: Yes Ear Surgery: No Endocrine Surgery: No Eye Surgery: Yes (cataracts) Genitourinary Surgery: No Gynecologic Surgery: No Oral Surgery: No Thoracic Surgery: No Social History Alcohol Use: Yes (WINE OCC) Tobacco Use: No Substance Use: No Allergies-Medications (Allergen,Severity, Reaction): Coded Allergies: No Known Allergies (Verified , 04/19/16) Reported Meds & Prescriptions Reported Meds & Active Scripts Active Digoxin 0.125 Mg Tab 0.125 Mg PO DAILY Prednisone 10 Mg Tab 10 Mg PO DAILY Zithromax (Azithromycin) 500 Mg Tab 500 Mg PO DAILY Potassium Chloride Microencaps 20 Meq Tab 20 Meq PO DAILY Furosemide 40 Mg Tab 40 Mg PO DAILY Coreg (Carvedilol) 12.5 Mg Tab 12.5 Mg PO Q12HR Xanax (Alprazolam) 0.25 Mg Tab 0.25 Mg PO Q8H PRN Xarelto (Rivaroxaban) 20 Mg Tab 20 Mg PO HS Reported Lisinopril 5 Mg Tab 5 Mg PO BID Metformin (Metformin HCl) 1,000 Mg Tab 1,000 Mg PO DAILY With a meal Isosorbide Mononitrate 20 Mg Tab 30 Mg PO BID Take 2 doses 7 hours apart. Synthroid (Levothyroxine Sodium) 125 Mcg Tab 125 Mcg PO DAILY Metformin (Metformin HCl) 500 Mg Tab 500 Mg PO HS With meals Aspir-81 (Aspirin) 81 Mg Tabdr Review of Systems General / Constitutional: No: Fever Eyes: No: Visual changes HENT: No: Headaches Cardiovascular: No: Chest Pain or Discomfort Respiratory: Positive: Cough, Shortness of Breath Gastrointestinal: No: Abdominal Pain Genitourinary: No: Dysuria Musculoskeletal: No: Pain Skin: No Rash Neurologic: No: Weakness Psychiatric: No: Depression Endocrine: No: Polydipsia Hematologic/Lymphatic: No: Easy Bruising Physical Exam Narrative GENERAL: Well-nourished, well-developed patient. SKIN: Focused skin assessment warm/dry. HEAD: Normocephalic. EYES: No scleral icterus. No injection or drainage. NECK: Supple, trachea midline. No JVD or lymphadenopathy. CARDIOVASCULAR: irregular rate and rhythm without murmurs, gallops, or rubs. Tachycardia noted RESPIRATORY: Breath sounds equal bilaterally. No accessory muscle use. GASTROINTESTINAL: Abdomen soft, non-tender, nondistended. MUSCULOSKELETAL: No cyanosis, or edema. BACK: Nontender without obvious deformity. No CVA tenderness. Data Data Last Documented VS Vital Signs Date Time Temp Pulse Resp B/P (MAP) Pulse Ox O2 Delivery O2 Flow Rate FiO2 08/26/17 20:39 114 18 131/90 (104) 95 Room Air 08/26/17 17:38 99.2 Orders Orders Complete Blood Count With Diff (08/26/17 18:13) Comprehensive Metabolic Panel (08/26/17 18:13) B-Type Natriuretic Peptide (08/26/17 18:13) D-Dimer (08/26/17 18:13) Ckmb (Isoenzyme) Profile (08/26/17 18:13) Troponin I (08/26/17 18:13) Iv Access Insert/Monitor (08/26/17 18:13) Electrocardiogram (08/26/17 18:13) Ecg Monitoring (08/26/17 18:13) Oximetry (08/26/17 18:13) Oxygen Administration (08/26/17 18:13) Chest, Single Ap (08/26/17 18:13) Ct Pulmonary Angiogram (08/26/17 18:13) Sodium Chloride 0.9% Flush (Ns Flush) (08/26/17 18:15) CKMB (08/26/17 18:15) CKMB% (08/26/17 18:15) Iohexol 350 Inj (Omnipaque 350 Inj) (08/26/17 19:07) Azithromycin Inj (Zithromax Inj) (08/26/17 20:15) Ceftriaxone Inj (Rocephin Inj) (08/26/17 20:15) Methylprednisolone So Succ Inj (Solumedr (08/26/17 20:15) Pantoprazole Inj (Protonix Inj) (08/26/17 20:15) Ranitidine Liq (Zantac Liq) (08/26/17 20:15) Famotidine (Pepcid) (08/26/17 20:30) Labs Laboratory Tests Test 08/26/17 18:15 White Blood Count 14.3 TH/MM3 Red Blood Count 3.87 MIL/MM3 Hemoglobin 11.8 GM/DL Hematocrit 34.6 % Mean Corpuscular Volume 89.4 FL Mean Corpuscular Hemoglobin 30.6 PG Mean Corpuscular Hemoglobin Concent 34.2 % Red Cell Distribution Width 12.4 % Platelet Count 243 TH/MM3 Mean Platelet Volume 8.7 FL Neutrophils (%) (Auto) 70.0 % Lymphocytes (%) (Auto) 18.0 % Monocytes (%) (Auto) 10.2 % Eosinophils (%) (Auto) 1.7 % Basophils (%) (Auto) 0.1 % Neutrophils # (Auto) 10.0 TH/MM3 Lymphocytes # (Auto) 2.6 TH/MM3 Monocytes # (Auto) 1.5 TH/MM3 Eosinophils # (Auto) 0.2 TH/MM3 Basophils # (Auto) 0.0 TH/MM3 CBC Comment DIFF FINAL Differential Comment D-Dimer Quantitative (PE/DVT) 0.34 MG/L FEU Blood Urea Nitrogen 25 MG/DL Creatinine 1.40 MG/DL Random Glucose 245 MG/DL Total Protein 7.9 GM/DL Albumin 3.4 GM/DL Calcium Level 9.0 MG/DL Alkaline Phosphatase 79 U/L Aspartate Amino Transf (AST/SGOT) 22 U/L Alanine Aminotransferase (ALT/SGPT) 39 U/L Total Bilirubin 1.2 MG/DL Sodium Level 135 MEQ/L Potassium Level 4.1 MEQ/L Chloride Level 98 MEQ/L Carbon Dioxide Level 25.7 MEQ/L Anion Gap 11 MEQ/L Estimat Glomerular Filtration Rate 49 ML/MIN Total Creatine Kinase 163 U/L Creatine Kinase MB 0.5 NG/ML Troponin I LESS THAN 0.02 NG/ML B-Type Natriuretic Peptide 526 PG/ML MDM Medical Decision Making Medical Screen Exam Complete: Yes Emergency Medical Condition: Yes Differential Diagnosis Aspiration pneumonia, community acquired pneumonia, uncontrolled reflux, pulmonary embolism, uncontrolled atrial fibrillation, viral syndrome Narrative Course Assessment plan discussed with patient and at bedside. EKG reveals atrial fibrillation with RVR rate of 120, left bundle branch block no significant ST segment elevation or depression. Labs reveal mild leukocytosis. Last 72 hours Impressions Chest X-Ray 08/26/171812 Signed Impressions: CONCLUSION: Cardiomegaly. Minimal basilar atelectasis. CT Angiography 08/26/171812 Signed Impressions: CONCLUSION: 1. Negative for pulmonary embolus. 2. Small bilateral pleural effusions. 3. Extensive peribronchial thickening and some patchy infiltrate probably repr esenting bronchitis and bronchopneumonia. Concerning the possible bronchopneumonia versus bronchitis with mild leukocytosis I think an antibiotic is appropriate as well as a cough suppressant. With the tachycardia/uncontrolled A. fib I am not sure he could tolerate adjustment of his beta-gini as his last blood pressure was 118/70. 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 Chao in a day or 2. We also discussed much more aggressive treatment of his GERD and avoidance of aggravating factors such as alcohol tobacco late and large meals spicy meals weight. Diagnosis Primary Impression: Bronchopneumonia Additional Impressions: Atrial fibrillation with rapid ventricular response GERD (gastroesophageal reflux disease) Qualified Codes: K21.9 - Gastro-esophageal reflux disease without esophagitis Patient Instructions: General Instructions Additional Instructions: Rest fluids and Motrin. Medications as prescribed. Follow-up with cardiology in 2-3 days. Follow-up with PCP. Encouraged to return to emergency room with any onset of new symptoms. Med/Other Pt SpecificInfo: Prescription(s) given Scripts Digoxin (Digoxin) 0.125 Mg Tab 0.125 MG PO DAILY for Regulate Heart Beat, #10 TAB 0 Refills Prov: Wan Yeung MD 08/26/17 Prednisone (Prednisone) 10 Mg Tab 10 MG PO DAILY for Cough, #20 TAB 0 Refills Prov: Wan Yeung MD 08/26/17 Azithromycin (Zithromax) 500 Mg Tab 500 MG PO DAILY for Infection, #7 TAB 0 Refills Prov: Wan Yeung MD 08/26/17 Disposition: 01 DISCHARGE HOME Condition: Good Wan Yeung MD Aug 26, 2017 18:17
[2017-08-26 18:29] LABS: BASOPHIL % 0.1 % (0.0-2.0); EOSINOPHIL # 0.2 TH/MM3 (0-0.4); EOSINOPHIL % 1.7 % (0.0-4.0); HEMATOCRIT 34.6 % (39.0-51.0); HEMOGLOBIN 11.8 GM/DL (13.0-17.0); LYMPHOCYTE # 2.6 TH/MM3 (1.0-4.8); MEAN CELL VOLUME 89.4 FL (80.0-100.0); MEAN CORPUSCULAR HEMOGLOBIN 30.6 PG (27.0-34.0); MEAN CORPUSCULAR HGB CONC 34.2 % (32.0-36.0); MEAN PLATELET VOLUME 8.7 FL (7.0-11.0); MONO % 10.2 % (0.0-8.0); MONOCYTE # 1.5 TH/MM3 (0-0.9); PLATELET COUNT 243 TH/MM3 (150-450); RED BLOOD COUNT 3.87 MIL/MM3 (4.50-5.90); RED CELL DISTRIBUTION WIDTH 12.4 % (11.6-17.2); WHITE BLOOD COUNT 14.3 TH/MM3 (4.0-11.0)
[2017-08-26 18:35] LABS: CHLORIDE 98 MEQ/L (98-107); SODIUM (NA) 135 MEQ/L (136-145)
[2017-08-26 18:39] LABS: ALBUMIN 3.4 GM/DL (3.4-5.0); BICARBONATE 25.7 MEQ/L (21.0-32.0); GLUCOSE,RANDOM 245 MG/DL (74-106)
[2017-08-26 18:40] LABS: BLOOD UREA NITROGEN 25 MG/DL (7-18)
[2017-08-26 18:42] LABS: ALT (GPT) 39 U/L (12-78); AST (GOT) 22 U/L (15-37)
[2017-08-26 18:43] LABS: GLOMERULAR FILTRATION RATE 49 ML/MIN (>89)
[2017-08-26 18:44] LABS: TOTAL BILIRUBIN ADULT 1.2 MG/DL (0.2-1.0); TOTAL PROTEIN 7.9 GM/DL (6.4-8.2)
[2017-08-26] MEDS ORDERED: METF1000 PO (18:44)
[2017-08-26] MEDS ORDERED: LISI-519 PO (18:44)
[2017-08-26] MEDS ORDERED: ISOS20TA PO (18:44)
[2017-08-26 18:45] LABS: ALKALINE PHOSPHATASE 79 U/L (45-117)
[2017-08-26 18:47] LABS: TROPONIN I LESS THAN 0.02 NG/ML (0.02-0.05)
--- NOTE | 2017-08-26 18:59 | RADRPT ---
EXAM DATE: 08/26/2017 6:52 PM EDT AGE/SEX: 82 years / Male INDICATIONS: Short of breath, cough CLINICAL DATA: This is the patient's initial encounter. Patient reports that signs and symptoms have been present for 2 weeks and indicates a pain score of 0/10. MEDICAL/SURGICAL HISTORY: Diabetes mellitus type II. Congestive heart failure. None. COMPARISON: [facility], CHEST SINGLE AP, 04/22/2016. . FINDINGS: Heart size enlarged. Minimal basilar atelectasis. No significant effusion. No pneumothorax. Calcified left hilar lymph nodes. Calcified granuloma left lung base. CONCLUSION: Cardiomegaly. Minimal basilar atelectasis. Electronically signed by: Gilberto Burton MD 08/26/2017 6:58 PM EDT
[2017-08-26] MEDS ORDERED: IOHEXOL 350 MG/ML 10 ML VIAL (for RAD DIAG) IVCONTRAST ONE (19:07)
--- NOTE | 2017-08-26 19:19 | RADRPT ---
EXAM DATE: 08/26/2017 7:12 PM EDT AGE/SEX: 82 years / Male INDICATIONS: Congested and short of breath. Evaluate for embolism. CLINICAL DATA: This is the patient's initial encounter. Patient reports that signs and symptoms have been present for 2 weeks and indicates a pain score of 0/10. MEDICAL/SURGICAL HISTORY: Diabetes mellitus type II. Hypertension. Congestive heart failure. Ant icoagulant therapy. Atrial fibrillation. Carotid endarterectomy. Cholecystectomy. RADIATION DOSE: 9.70 CTDI (mGy) COMPARISON: [facility], CT PULMONARY ANGIOGRAM, 04/19/2016. . TECHNIQUE: Volumetric scanning was performed using a multi-row detector CT scanner during bolus infu laura of 72 ml Omnipaque 350 (iohexol) nonionic water-soluble contrast as a single exam dose. The shania a was post processed with a variety of visualization algorithms including full volume maximum intensi ty projection and sliding thin slab reformation. Using automated exposure control and adjustment of the mA and/or kV according to patient size, radiation dose was kept as low as reasonably achievable t o obtain optimal diagnostic quality images. DICOM format image data is available electronically for review and comparison. FINDINGS: No filling defects to suggest pulmonary embolic disease. There is extensive peribronchial thickening and some distal airway disease with patchy infiltrate at both lung bases, worse on the right. Small b ilateral pleural effusions. Trace pericardial fluid. No acute findings in the upper abdomen. CONCLUSION: 1. Negative for pulmonary embolus. 2. Small bilateral pleural effusions. 3. Extensive peribronchial thickening and some patchy infiltrate probably representing bronchitis an d bronchopneumonia. Electronically signed by: Gilberto Burton MD 08/26/2017 7:18 PM EDT
[2017-08-26 19:27] VITALS: BP 118/79; PULSE 118; RESP 18; O2SAT 96
[2017-08-26] MEDS ORDERED: PRED10 PO (20:13)
[2017-08-26] MEDS ORDERED: DIGO0.12 PO (20:13)
[2017-08-26] MEDS ORDERED: ZITH500T PO (20:13)
[2017-08-26] MEDS ORDERED: AZITHROMYCIN INJ 500 MG in SODIUM CHLOR 0.9% 250 ML INJ 250 ML IV ONE (20:15)
[2017-08-26] MEDS ORDERED: RANITIDINE HCL SYRUP 150 MG/10 ML UDC PO ONE (20:15)
[2017-08-26] MEDS ORDERED: cefTRIAXone INJ 1,000 MG in SODIUM CHLORIDE 0.9% INJ 100 ML IV ONE (20:15)
[2017-08-26] MEDS ORDERED: methylPREDNISolone SOD SUCC 125 MG/2 ML VIAL IV PUSH ONE (20:15)
[2017-08-26] MEDS ORDERED: PANTOPRAZOLE SODIUM 40 MG VIAL IV PUSH ONE (20:15)
[2017-08-26] MEDS ORDERED: FAMOTIDINE 20 MG TAB PO ONE (20:30)
[2017-08-26 20:39] VITALS: BP 131/90; PULSE 114; RESP 18; O2SAT 95
[2017-08-26 22:21] VITALS: BP 110/80; PULSE 114; RESP 18; O2SAT 96
--- NOTE | 2017-08-27 14:15 | EKG ---
Date Performed: 08/26/2017 Time Performed: 18:21:26 PTAGE: 82 years EKG: ATRIAL FIBRILLATION WITH RAPID VENTRICULAR RESPONSE LEFT BUNDLE BRANCH BLOCK ABNORMAL ECG C ompared to PREVIOUS TRACING , there has been a marked increase in ventricular rate and further widen ing of the QRS complexes. PREVIOUS TRACIN05/31/2016 10.50 DOCTOR: Dillan Brandt Interpretating Date/Time 08/27/2017 14:14:38
== END 2017-08-26 22:48 | disposition home or self-care (01) ==
LOC: PHED 17:36
DX: J18.0 Bronchopneumonia, unspecified organism (principal); R05 Cough; I11.0 Hypertensive heart disease with heart failure; I48.91 Unspecified atrial fibrillation; E11.9 Type 2 diabetes mellitus without complications; K21.9 Gastro-esophageal reflux disease without esophagitis; I25.10 Atherosclerotic heart disease of native coronary artery without angina pectoris; R12 Heartburn; E03.9 Hypothyroidism, unspecified; Z79.01 Long term (current) use of anticoagulants
CPT/HCPCS: 71045; 71275; 80053; 82550; 82552; 83880; 84484; 85025; 85379; 93005; 96365; 96367; 96375; 99285; C9113; J0456; J0696; J2930; J7050; Q9967